=== PATIENT | female | born 1965 | race Caucasian/White ===

== ENCOUNTER 2019-03-13 18:06 | Inpatient (IN) | payer BC ==
[2019-03-13] MEDS ORDERED: ACETAMINOPHEN 500 MG TAB ONE (18:39)
[2019-03-13] MEDS ORDERED: NA CHLORIDE 0.9% 3,000 ML ONE (18:39)
[2019-03-13] MEDS ORDERED: CEFTRIAXONE/SWI 1gm 1 GM/10 ML SYR ONE (18:40)
[2019-03-13 18:55] LABS: Absolute Lymphocytes (CBC) 0.6 K/uL (0.7-4.9); Basophils % 0.4 % (0-1.3); Hematocrit 38.7 % (36.0-45.0); Lymphocytes % 3.9 % (15.3-44.8); MPV 8.1 fL (7.6-11.3); RBC Red Blood Cell Count 4.52 M/uL (3.86-4.86)
--- NOTE | 2019-03-13 19:05 | RAD REPORT ---
EXAM DESCRIPTION: RAD - Chest Single View - 03/13/2019 6:53 pm CLINICAL HISTORY: back pain Chest pain. COMPARISON: No comparisons FINDINGS: Portable technique limits examination quality. Emphysematous changes are present throughout the lungs. Linear atelectasis in the right lung base. So ft tissue fullness is seen in the right hilum. The heart is normal in size. No displaced fractures. IMPRESSION: Mild diffuse COPD with small area of atelectasis in the right lung base. Soft tissue fullness in the right hilar region could represent lymphadenopathy or mass. CT chest foll owup may be of value.
[2019-03-13 19:16] LABS: Protime INR 1.13
[2019-03-13 19:18] LABS: ALT/SGPT 33 U/L (12-78); AST/SGOT 26 U/L (15-37); Albumin 3.4 g/dL (3.4-5.0); Alkaline Phosphatase 111 U/L (45-117); Amylase Level 43 U/L (25-115); BUN Blood Urea Nitrogen 26 mg/dL (7-18); Bicarbonate 23 mmol/L (21-32); Bilirubin Direct 0.2 mg/dL (0-0.2); Bilirubin Total 0.4 mg/dL (0.2-1.0); CKMB Creatine Kinase MB < 1.0 ng/mL (0.3-3.6); Creatine Phosphokinase 133 U/L (26-192); Glucose Level 125 mg/dL (74-106); Lipase 206 U/L (73-393); Potassium 4.5 mmol/L (3.5-5.1); Protein, Total 8.3 g/dL (6.4-8.2); Sodium Level 135 mmol/L (136-145); Troponin (Emerg Dept Use Only) < 0.02 ng/mL (0.0-0.045)
[2019-03-13 19:20] LABS: Urine Amorphous Sediment 2+ /HPF (NONE SEEN); Urine Bacteria <20 /HPF (<20); Urine Culture Reflex Order NOT NEEDED; Urine Mucus 2+ /HPF (NONE SEEN)
[2019-03-13 19:21] LABS: Urine Blood TRACE (NEG); Urine Glucose 2+ (NEG); Urine Protein NEGATIVE (NEG); Urine Specific Gravity 1.015 (1.005-1.030)
--- NOTE | 2019-03-13 19:59 | RAD REPORT ---
EXAM DESCRIPTION: CT - Chest Abd Pelvis Wo Con - 03/13/2019 7:45 pm CLINICAL HISTORY: Chest and abdomen pain. ABD PAIN COMPARISON: Chest Single View dated 03/13/2019 TECHNIQUE: A noncontrast examination was performed. All CT scans are performed using dose optimization technique as appropriate and may include automated exposure control or mA/KV adjustment according to patient size. FINDINGS: A spiculated nodule is present in the right upper lobe measuring 10 x 9 mm. Irregular spic ulated soft tissue mass is suspected in the right hilar region measuring approximately 3.1 x 2.8 cm. Full assessment is quite limited by the lack of IV contrast.Mild postobstructive atelectasis suspecte d in the right lower lobe.No pleural or pericardial effusion.No intrathoracic adenopathy. The liver demonstrates no focal mass or biliary dilatation. Splenomegaly is present. Atrophic left ki dney is seen. Right kidney shows no hydronephrosis or mass. Pancreas and adrenal glands are within no rmal limits. No bowel obstruction, free air, free fluid or abscess. Normal appendix. No pathologic lymphadenopath y in the abdomen or pelvis. No worrisome osseous finding. IMPRESSION: Right hilar mass lesion and spiculated right upper lobe pulmonary nodule are likely rela pati to lung malignancy.Full assessment is limited by lack of IV contrast material. There is mild post obstructive atelectasis in right lower lobe. Splenomegaly. Partially atrophic left kidney may be a sequela of previous infection.
[2019-03-13] MEDS ORDERED: NA CHLORIDE 0.9% 250 ML ONE (20:36)
[2019-03-13] MEDS ORDERED: AZITHROMYCIN 500 MG INJ IVPB ONE (20:36)
[2019-03-13] MEDS ORDERED: TRAMADOL HCL 50 MG TAB ONE (20:39)
--- NOTE | 2019-03-13 21:22 | ER ---
Nurse's Notes [facility] Name: Chelsey Green Age: 53 yrs Sex: Female : 1965 Arrival Date: 03/13/2019 Time: 18:11 Bed 17 Private MD: Diagnosis: Post Obstructive Pneumonia;Hypotension;Fever, unspecified;Hypercalcemia Presentation: 03/13 18:25 Presenting complaint: Patient states: UTI x 1 week. on Bactrim. Fever today. Reports ca1 N/V. Transition of care: patient was not received from another setting of care. Onset of symptoms was March 13, 2019. Risk Assessment: Do you want to hurt yourself or someone else? Patient reports no desire to harm self or others. Initial Sepsis Screen: Does the patient meet any 2 criteria? Temp <36.0*C (96.8*F)) or > 38.3*C (100.9*F). HR > 90 bpm. Yes Does the patient have a suspected source of infection? Yes: Dysuria/Frequency/Urgency/UTI. 18:25 Method Of Arrival: Wheelchair ca1 18:25 Acuity: MARCOS 2 ca1 22:57 Care prior to arrival: None. 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 - Coronavirus screen:: The patient has NOT traveled to [place], [place], or [place] in the past 14 days. The patient has NOT had contact with known/suspected case of Coronavirus?. - Social history:: Smoking status: Patient denies any tobacco usage or history of. - Ebola Screening: : Patient negative for fever greater than or equal to 101.5 degrees Fahrenheit, and additional compatible Ebola Virus Disease symptoms Patient denies exposure to infectious person Patient denies travel to an Ebola-affected area in the 21 days before illness onset No symptoms or risks identified at this time. Screenin:28 Abuse screen: Denies threats or abuse. Denies injuries from another. Nutritional mg2 screening: No deficits noted. Tuberculosis screening: No symptoms or risk factors identified. Fall Risk IV access (20 points). Assessment: 18:32 Reassessment: A code sepsis has been called. sg 18:40 General: Appears in no apparent distress. comfortable, Behavior is calm, cooperative. mg2 Pain: Complains of pain in abdomen. Neuro: Level of Consciousness is awake, alert, obeys commands, Oriented to person, place, time, situation. Cardiovascular: Capillary refill < 3 seconds Patient's skin is warm and dry. Respiratory: Airway is patent Respiratory effort is even, unlabored, Respiratory pattern is regular, symmetrical. GI: Bowel sounds present X 4 quads. Abd is soft and non tender X 4 quads. GI: Reports lower abdominal pain, upper abdominal pain, nausea. : Urine is clear. EENT: No signs and/or symptoms were reported regarding the EENT system. Derm: Skin is intact, is healthy with good turgor, Skin is pink, warm \T\ dry. normal. Musculoskeletal: Circulation, motion, and sensation intact. Capillary refill < 3 seconds. Vital Signs: 18:30 BP 88 / 62; Pulse 133; Resp 18 S; Temp 102.9(O); Pulse Ox 94% on R/A; Weight 99.34 kg ca1 (R); Height 5 ft. 8 in. (172.72 cm) (R); Pain 9/10; 19:28 BP 106 / 56; Pulse 105; Resp 18; Pulse Ox 100% on R/A; mg2 20:30 BP 103 / 57; Pulse 101; Resp 18; Temp 99.7(A); Pulse Ox 95% on R/A; mg2 22:57 BP 96 / 53; Pulse 87; Resp 18; Temp 99.7; Pulse Ox 95% on R/A; mg2 23:09 BP 95 / 58; Pulse 88; Resp 18; Pulse Ox 95% on R/A; mg2 18:30 Body Mass Index 33.30 (99.34 kg, 172.72 cm) ca1 ED Course: 18:11 Patient arrived in ED. mr 18:27 Triage completed. ca1 18:30 Neeraj Espinosa, RN is Primary Nurse. mg2 18:30 Arm band placed on right wrist. ca1 18:32 Enrique Quinonez FNP-C [facility]. la1 18:32 Xavier Figueroa MD is Attending Physician. la1 18:35 Initial lab(s) drawn, by me, sent to lab. First set of blood cultures drawn by me. sg Missed attempt(s): 22 gauge in right forearm. Bleeding controlled, band aid applied, catheter tip intact. 18:54 Radiology exam delayed due to lab results not completed at this time. (BUN/Creatinine). vm2 19:00 Straight cath inserted, using sterile technique, 16 Fr. Returned clear yellow urine. mg2 Patient tolerated well. 19:28 Patient has correct armband on for positive identification. Door closed. mg2 20:30 No provider procedures requiring assistance completed. mg2 21:21 Ronaldo Wu is Hospitalizing Provider. la1 23:24 Patient admitted, IV remains in place. mg2 Administered Medications: 18:49 Drug: NS 0.9% (30 ml/kg) 30 ml/kg Route: IV; Rate: bolus; Site: left forearm; mg2 23:00 Follow up: Response: No adverse reaction; IV Status: Completed infusion mg2 18:49 Drug: Tylenol 1000 mg Route: PO; mg2 22:59 Follow up: Response: No adverse reaction mg2 19:02 Drug: Rocephin 1 grams Route: IV; Rate: calculated rate; Site: left forearm; mg2 22:59 Follow up: Response: No adverse reaction; IV Status: Completed infusion mg2 20:40 Drug: Zithromax 500 mg Route: IVPB; Infused Over: 1 hrs; Site: left forearm; mg2 22:59 Follow up: Response: No adverse reaction; IV Status: Completed infusion mg2 20:40 Drug: traMADol 50 mg Route: PO; mg2 22:59 Follow up: Response: No adverse reaction mg2 Outcome: 21:22 Decision to Hospitalize by Provider. la1 23:25 Admitted to Med/surg accompanied by danelle, via wheelchair, room 211, with chart, Report mg2 called to NORMA Johnson 23:25 Condition: stable 23:25 Instructed on the need for admit, Demonstrated understanding of instructions. 23:29 Patient left the ED. mg2 Signatures: Kt Pollock, NORMA RN sg Alejandra Cai Enrique, NURSE INFORMATICIST-C NURSE INFORMATICIST-Cla1 Daja Thomson 2 Neeraj Espinosa RN RN mg2 Chelsie Leos RN RN ca1
--- NOTE | 2019-03-13 21:23 | EDPHYS ---
[facility] Name: Chelsey Green Age: 53 yrs Sex: Female : 1965 Arrival Date: 03/13/2019 Time: 18:11 Bed 17 Private MD: ED Physician Xavier Figueroa HPI: 03/13 18:37 This 53 yrs old Female presents to ER via Wheelchair with complaints of la1 Fever, Abdominal Pain, Back Pain, Nausea. 18:37 The patient reports fever, that was measured at 102.9 degrees Fahrenheit. Onset: The la1 symptoms/episode began/occurred 3 day(s) ago. Modifying factors: there are no obvious modifying factors. Associated signs and symptoms: Pertinent positives: chills, cough, dysuria . Severity of symptoms: At their worst the symptoms were severe in the emergency department the symptoms are unchanged. The patient has not experienced similar symptoms in the past. pt was being treated for what was either a UTI or kidney stone from her PCP, was on cipro but not getting better, culture report said it was sensitive to bactrim which she is on and on her last two pills, now having increased pain, fevers. . 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 - Coronavirus screen:: The patient has NOT traveled to [place], [place], or [place] in the past 14 days. The patient has NOT had contact with known/suspected case of Coronavirus?. - Social history:: Smoking status: Patient denies any tobacco usage or history of. - Ebola Screening: : Patient negative for fever greater than or equal to 101.5 degrees Fahrenheit, and additional compatible Ebola Virus Disease symptoms Patient denies exposure to infectious person Patient denies travel to an Ebola-affected area in the 21 days before illness onset No symptoms or risks identified at this time. ROS: 18:39 Eyes: Negative for injury, pain, redness, and discharge, ENT: Negative for injury, la1 pain, and discharge, Neck: Negative for injury, pain, and swelling, Cardiovascular: Negative for chest pain, palpitations, and edema, Respiratory: + for cough Abdomen/GI: Negative for abdominal pain, nausea, vomiting, diarrhea, and constipation, Back: Negative for injury and pain. 18:39 MS/Extremity: Negative for injury and deformity, Neuro: Negative for headache, weakness, numbness, tingling, and seizure, Endocrine: Negative for neck swelling, polydipsia, polyuria, polyphagia, and marked weight changes. 18:39 Constitutional: Positive for body aches, chills, fever. 18:39 Eyes: 18:39 : Positive for urinary symptoms, burning with urination. Exam: 18:42 Constitutional: This is a well developed, well nourished patient who is awake, alert, la1 and in no acute distress. Head/Face: Normocephalic, atraumatic. Eyes: Pupils equal round and reactive to light, extra-ocular motions intact. Lids and lashes normal. Conjunctiva and sclera are non-icteric and not injected. Cornea within normal limits. Periorbital areas with no swelling, redness, or edema. ENT: Mucous membranes moist. Neck: Trachea midline Supple, full range of motion without nuchal rigidity, or vertebral point tenderness. No Meningismus. Chest/axilla: Normal chest wall appearance and motion. Cardiovascular: Regular rate and rhythm with a normal S1 and S2. Respiratory: Lungs have equal breath sounds bilaterally, clear to auscultation Abdomen/GI: Soft, non-tender 18:42 Skin: Warm, dry with normal turgor. Normal color with no rashes, no lesions, and no evidence of cellulitis. MS/ Extremity: Pulses equal, no cyanosis. Neurovascular intact. Full, normal range of motion. 18:42 Back: CVA tenderness, that is moderate. Vital Signs: 18:30 BP 88 / 62; Pulse 133; Resp 18 S; Temp 102.9(O); Pulse Ox 94% on R/A; Weight 99.34 kg ca1 (R); Height 5 ft. 8 in. (172.72 cm) (R); Pain 9/10; 19:28 BP 106 / 56; Pulse 105; Resp 18; Pulse Ox 100% on R/A; mg2 20:30 BP 103 / 57; Pulse 101; Resp 18; Temp 99.7(A); Pulse Ox 95% on R/A; mg2 22:57 BP 96 / 53; Pulse 87; Resp 18; Temp 99.7; Pulse Ox 95% on R/A; mg2 23:09 BP 95 / 58; Pulse 88; Resp 18; Pulse Ox 95% on R/A; mg2 18:30 Body Mass Index 33.30 (99.34 kg, 172.72 cm) ca1 MDM: 18:37 Patient medically screened. la1 21:19 Data reviewed: vital signs, nurses notes, lab test result(s), EKG, radiologic studies, la1 I have discussed the patient's presentation/case with the attending Emergency Department Physician; and as a result, I will admit patient. Data interpreted: Pulse oximetry: on room air is 95 %. Interpretation: normal. Counseling: I had a detailed discussion with the patient and/or guardian regarding: the historical points, exam findings, and any diagnostic results supporting the discharge/admit diagnosis, lab results, radiology results, the need for further work-up and treatment in the hospital. Medication response: NS. Response to treatment: the patient's symptoms have markedly improved after treatment. Physician consultation: Ronaldo Merlinjacquelyn was called at 21:20, was contacted at 21:20, regarding admission, to the telemetry unit. 02 18:32 Order name: Amylase, Serum mg2 02 18:32 Order name: Basic Metabolic Panel mg2 02/ 18:32 Order name: Blood Culture Adult (2) mg2 03/13 18:32 Order name: CBC with Diff mg2 03/13 18:32 Order name: Ckmb mg2 / 18:32 Order name: CPK mg2 / 18:32 Order name: Lactate; Complete Time: 20:03 mg2 / 18:32 Order name: LFT's mg2 / 18:32 Order name: Lipase mg2 02/ 18:32 Order name: Procalcitonin mg2 02/ 18:32 Order name: Protime (+inr) mg2 / 18:32 Order name: Ptt, Activated mg2 / 18:32 Order name: Troponin (emerg Dept Use Only) mg2 03/13 18:32 Order name: Urine Microscopic Only mg2 03/13 18:52 Order name: Glucose, Ancillary Testing; Complete Time: 19:07 EDMS 03/13 19:11 Order name: CBC with Automated Diff; Complete Time: 19:11 EDMS 03/13 19:11 Order name: Urine Dipstick--Ancillary (enter results) mw2 03/13 19:11 Order name: Urine --Ancillary (enter results) 2 03/13 19:18 Order name: Protime (+INR); Complete Time: 20:03 EDMS 03/13 19:18 Order name: PTT, Activated Partial Thromb; Complete Time: 20:03 EDMS 03/13 19:22 Order name: Urine Microscopic Only; Complete Time: 20:03 EDMS 03/13 19:22 Order name: Urine --Ancillary; Complete Time: 20:03 EDMS 03/13 19:22 Order name: Urine Dipstick-Ancillary; Complete Time: 20:03 EDMS 03/13 19:27 Order name: Basic Metabolic Panel; Complete Time: 20:03 EDMS 03/13 19:27 Order name: Liver (Hepatic) Function; Complete Time: 20:03 EDMS 03/13 19:28 Order name: Creatine Phosphokinase; Complete Time: 20:03 EDMS 03/13 19:28 Order name: CKMB Creatine Kinase MB; Complete Time: 20:03 EDMS 03/13 19:28 Order name: Troponin (Emerg Dept Use Only); Complete Time: 20:03 EDMS 03/13 19:28 Order name: Amylase Level; Complete Time: 20:03 EDMS 03/13 19:28 Order name: Lipase; Complete Time: 20:03 EDMS 03/13 18:32 Order name: Chest Single View XRAY mg2 03/13 18:32 Order name: Accucheck; Complete Time: 18:50 mg2 03/13 18:32 Order name: Cardiac monitoring; Complete Time: 18:50 mg2 03/13 18:32 Order name: EKG - Nurse/Tech; Complete Time: 19:28 mg2 03/13 18:32 Order name: IV Saline Lock - Large Bore; Complete Time: 18:50 mg2 03/13 18:32 Order name: Labs collected and sent; Complete Time: 18:50 mg2 03/13 18:32 Order name: O2 Per Protocol; Complete Time: 18:50 mg2 03/13 18:32 Order name: O2 Sat Monitoring; Complete Time: 18:50 mg2 03/13 18:32 Order name: Urine Dipstick-Ancillary (obtain specimen); Complete Time: 19:13 mg2 03/13 18:37 Order name: Cath: straight cath urine please; Complete Time: 19:13 la1 03/13 18:50 Order name: CT Abd/Pelvis - IV Contrast Only la1 03/13 19:13 Order name: RAD; Complete Time: 20:03 EDTX 03/13 19:32 Order name: Procalcitonin; Complete Time: 20:03 EDMS 03/13 20:14 Order name: CT; Complete Time: 21:14 EDTX 03/13 20:17 Order name: Flu; Complete Time: 21:14 mg2 Administered Medications: 18:49 Drug: NS 0.9% (30 ml/kg) 30 ml/kg Route: IV; Rate: bolus; Site: left forearm; mg2 23:00 Follow up: Response: No adverse reaction; IV Status: Completed infusion mg2 18:49 Drug: Tylenol 1000 mg Route: PO; mg2 22:59 Follow up: Response: No adverse reaction mg2 19:02 Drug: Rocephin 1 grams Route: IV; Rate: calculated rate; Site: left forearm; mg2 22:59 Follow up: Response: No adverse reaction; IV Status: Completed infusion mg2 20:40 Drug: Zithromax 500 mg Route: IVPB; Infused Over: 1 hrs; Site: left forearm; mg2 22:59 Follow up: Response: No adverse reaction; IV Status: Completed infusion mg2 20:40 Drug: traMADol 50 mg Route: PO; mg2 22:59 Follow up: Response: No adverse reaction mg2 Disposition: 03/14 07:40 Co-signature as Attending Physician, Xavier Figueroa MD. rn Disposition: 03/13/19 21:22 Hospitalization ordered by Ronaldo Wu for Inpatient Admission. Preliminary diagnosis are Post Obstructive Pneumonia, Hypotension, Fever, unspecified, Hypercalcemia. - Bed requested for Telemetry/MedSurg (Inpatient). - Status is Inpatient Admission. mg2 - Condition is Stable. - Problem is new. - Symptoms have improved. Signatures: Dispatcher [employer] EDXavier Agrawal MD MD rn Attema, Lee, REMY-C CHIP TUNER-Cla1 Carina Choi RN RN tl1 Neeraj Espinosa RN RN mg2 Chelsie Leos RN RN ca1 Corrections: (The following items were deleted from the chart) 03/13 22:46 21:22 Hospitalization Ordered by Ronaldo Wu for Inpatient Admission. Preliminary tl1 diagnosis is Post Obstructive Pneumonia; Hypotension; Fever, unspecified; Hypercalcemia. Bed requested for Telemetry/MedSurg (Inpatient). Status is Inpatient Admission. Condition is Stable. Problem is new. Symptoms have improved. la1 23:29 22:46 03/13/2019 21:22 Hospitalization Ordered by Ronaldo Wu for Inpatient mg2 Admission. Preliminary diagnosis is Post Obstructive Pneumonia; Hypotension; Fever, unspecified; Hypercalcemia. Bed requested for Telemetry/MedSurg (Inpatient). Status is Inpatient Admission. Condition is Stable. Problem is new. Symptoms have improved. tl1
--- NOTE | 2019-03-13 22:32 | P.HP ---
Certification for Inpatient Patient admitted to: Inpatient With expected LOS: >2 Midnights Practitioner: I am a practitioner with admitting privileges, knowledge of patient current condition, hospital course, and medical plan of care. Services: Services provided to patient in accordance with Admission requirements found in Title 42 Section 412.3 of the Code of Federal Regulations Patient History Date of Service: 03/13/19 Reason for admission: Fever and chills History of Present Illness: 53 year old woman with a history kidney stones, diabetes mellitus and neuropathy presented to the emergency department with a complaint of fever and chills of 1 day duration. She was recently treated for UTI and has 2 more doses of Bactrim to complete treatment. The organism was found to be resistant to Cipro which she took before the Bactrim. She reports an episode of vomiting. She denied diarrhea. She endorsed rigors. Her UA in the ED did not suggest the presence of UTI. Chest x-ray demonstrated spiculated spots in the right upper lobe and right hilar regions highly suspicious for malignancy. It also reported atelectasis in the right lower. Her serum calcium is elevated. She has leukocytosis. Fever up to 102.9 was recorded in the ED. Patient meets criteria for sepsis. She is admitted for further management. Allergies estrogens, conjugated [From Premarin] Allergy (Verified 03/13/19 23:22) Hives Home Medications: Butalb/Acetaminophen/Caffeine [Jcsqym-Rmfywmqq-Fnzt 50-300-40] 1 cap PO Q6HP PRN 03/14/19 Cholecalciferol (Vitamin D3) [Vitamin D3] 2,000 unit PO DAILY 03/14/19 Dapagliflozin Propanediol [Farxiga] 10 mg PO DAILY 03/14/19 Dulaglutide [Trulicity] 1.5 mg SQ EVERY 7TH DAY 03/14/19 Duloxetine HCl 60 mg PO BEDTIME 03/14/19 Levothyroxine Sodium 150 mcg PO DAILY 03/14/19 Metaxalone [Skelaxin*] 800 mg PO TIDP PRN 03/14/19 Omeprazole [Prilosec] 40 mg PO DAILY 03/14/19 Pioglitazone HCl 45 mg PO DAILY 03/14/19 Pitavastatin Calcium [Livalo] 4 mg PO DAILY 03/14/19 Promethazine HCl 25 mg PO Q4HP PRN 02/06/20 Ubidecarenone [Co Q-10] 200 mg PO DAILY 03/14/19 - Past Medical/Surgical History Diabetic: Yes -: DM type 2 -: Peripheral neuropathy -: Kidney stones -: Lithotripsy -: sp Ureteral stent with removal -: Orthopedic surgery - Family History Father -: Cancer (Lung and brain) - Social History Smoking Status: Former smoker (Quit 5 years ago) Alcohol use: No CD- Drugs: No Place of Residence: Home Review of Systems Other: General:No unintentional weight loss. Eyes: No eye discharge, Respiratory: Report dry cough. CVS: No palpitation, no lightheadedness. GI: No abdominal pain, no constipation, no diarrhea. Genitourinary: No dysuria, no urinary frequency, no incontinence, no hematuria. Reports right flank pain. Musculoskeletal: No joint pains, or joint swelling, no gait instability. Neurology: No headache, no asymmetric weakness, no problem with swallowing. Except as documented, all other systems reviewed and negative. Physical Examination - Physical Exam General: Alert, In no apparent distress, Oriented x3 HEENT: Mucous membr. moist/pink, Sclerae nonicteric Neck: Supple, JVD not distended Respiratory: Clear to auscultation bilaterally, Normal air movement Cardiovascular: No edema, Normal pulses, Regular rate/rhythm, Normal S1 S2, Other (Tachycardic) Capillary refill: <2 Seconds Gastrointestinal: Normal bowel sounds, Soft and benign, Non-distended, No tenderness Musculoskeletal: No swelling, No erythema Integumentary: No rashes, No erythema Neurological: Normal speech, Normal strength at 5/5 x4 extr - Studies Laboratory Data (last 24 hrs) 03/13/19 18:44: PT 13.3 H, INR 1.13, APTT 33.1 03/13/19 18:44: WBC 14.9 H, Hgb 12.9, Hct 38.7, Plt Count 255 03/13/19 18:44: Sodium 135 L, Potassium 4.5, BUN 26 H, Creatinine 2.23 H, Glucose 125 H, Total Bilirubin 0.4, AST 26, ALT 33, Alkaline Phosphatase 111, Amylase 43, Lipase 206 Microbiology Data (last 24 hrs): 03/13/19 20:25 Nasopharnyx Influenza Type A Antigen Screen - Final 03/13/19 20:25 Nasopharnyx Influenza Type B Antigen Screen - Final Assessment and Plan - Problems (Diagnosis) (1) Sepsis Current Visit: Yes Status: Acute (2) Pneumonia Current Visit: Yes Status: Acute (3) Lung mass Current Visit: Yes Status: Acute (4) Hypercalcemia Current Visit: Yes Status: Acute (5) Acute renal failure Current Visit: Yes Status: Acute (6) DM type 2 (diabetes mellitus, type 2) Current Visit: Yes Status: Acute - Plan Admit to general medical floor Start IV Rocephin and Zithromax IV hydration Follow blood culture. Obtain urine culture to document resolution of UTI Pain management as needed Insulin sliding scale for glucose management Consult to pulmonary. - Advance Directives Does patient have a Living Will: No Does patient have a Durable POA for Healthcare: No
[2019-03-13] MEDS ORDERED: ALBUTEROL 2.5 MG/3 ML NEB SOL NEB PRN (23:33)
[2019-03-13] MEDS ORDERED: ONDANSETRON 4 MG/2 ML VIAL IV PRN (23:33)
[2019-03-13] MEDS ORDERED: ACETAMINOPHEN 500 MG TAB PO PRN (23:33)
[2019-03-14 00:03] VITALS: BMI 33.3
[2019-03-14] MEDS: NA CHLORIDE 0.9% 1,000 ML IV SCH ×2 (01:02→11:07)
[2019-03-14] MEDS: HEPARIN 5000 UNIT/ML 1 ML VIAL SQ SCH ×3 (01:02→17:00)
[2019-03-14] MEDS: MORPHINE 2 MG/ML SYR IV PRN ×3 (02:52→17:39)
[2019-03-14 05:44] LABS: Absolute Lymphocytes (CBC) 1.1 K/uL (0.7-4.9); Basophils % 0.8 % (0-1.3); Hematocrit 33.3 % (36.0-45.0); Lymphocytes % 15.5 % (15.3-44.8); MPV 7.8 fL (7.6-11.3); RBC Red Blood Cell Count 3.81 M/uL (3.86-4.86)
[2019-03-14 06:00] LABS: Magnesium 1.9 mg/dL (1.8-2.4); Phosphorus 3.2 mg/dL (2.5-4.9); Potassium 4.1 mmol/L (3.5-5.1)
[2019-03-14] MEDS: INSULIN -REGULAR HUMAN 50 UNIT/0.5 ML ML SQ SCH ×4 (07:30→21:00)
[2019-03-14] MEDS ORDERED: CEFTRIAXONE 1 GM/NS 50 ML 1 GM/50 ML BAG IV SCH (09:00)
[2019-03-14] MEDS ORDERED: METAXALONE 800 MG TAB PO PRN (09:06)
--- NOTE | 2019-03-14 10:24 | EKG ---
Test Date: 2019-03-13 Test Time: 19:17:36 Adventure Therapist: MG MEASUREMENT RESULTS: Intervals: Rate: 108 WA: 150 QRSD: 92 QT: 342 QTc: 458 [place]: P: 45 WA: 150 QRS: -13 T: 21 INTERPRETIVE STATEMENTS: Sinus tachycardia Possible Anterolateral infarct, age undetermined Abnormal ECG No previous ECG available for comparison Electronically Signed On 03-14-19 10:24:08 SOIL BIOLOGY TEACHER by Spencer Lindquist
[2019-03-14] MEDS ORDERED: NA CHLORIDE 0.9% 1,000 ML IV SCH (12:30)
--- NOTE | 2019-03-14 12:36 | P.CNS ---
Date of Consult: 03/14/19 Reason for Consult: Possible lung cancer Chief Complaint: Fever and chills History of Present Illness: Patient is 53 years of age admitted with sudden onset of fever and chills admitted from the emergency room abnormal chest x-ray was found to have a right hilar mass former smoker quit 5 years ago did smoke much 1 pack a week but was exposed to significant amount of secondhand smoke no prior history of obstructive airways disease no other pulmonary complaints denies any shortness of breath a slight cough about 3 weeks ago was also informed that her calcium was elevated Allergies estrogens, conjugated [From Premarin] Allergy (Verified 03/13/19 23:22) Hives Home Medications: Butalb/Acetaminophen/Caffeine [Nsybal-Rywhynph-Sqwh 50-300-40] 1 cap PO Q6HP PRN 03/14/19 Cholecalciferol (Vitamin D3) [Vitamin D3] 2,000 unit PO DAILY 03/14/19 Dapagliflozin Propanediol [Farxiga] 10 mg PO DAILY 03/14/19 Dulaglutide [Trulicity] 1.5 mg SQ EVERY 7TH DAY 03/14/19 Duloxetine HCl 60 mg PO BEDTIME 03/14/19 Levothyroxine Sodium 150 mcg PO DAILY 03/14/19 Metaxalone [Skelaxin*] 800 mg PO TIDP PRN 03/14/19 Omeprazole [Prilosec] 40 mg PO DAILY 03/14/19 Pioglitazone HCl 45 mg PO DAILY 03/14/19 Pitavastatin Calcium [Livalo] 4 mg PO DAILY 03/14/19 Promethazine HCl 25 mg PO Q4HP PRN 03/14/19 Ubidecarenone [Co Q-10] 200 mg PO DAILY 03/14/19 - Past Medical/Surgical History Diabetic: Yes -: DM type 2 -: Peripheral neuropathy -: Kidney stones -: Lithotripsy -: sp Ureteral stent with removal -: Orthopedic surgery - Family History Father Medical History: Cancer - Social History Alcohol use: No CD- Drugs: No Place of Residence: Home Review of Systems 10-point ROS is otherwise unremarkable Physical Examination Temp Pulse Resp BP Pulse Ox 96.9 F 81 20 122/60 93 03/14/19 04:00 03/14/19 04:00 03/14/19 11:41 03/14/19 04:00 03/14/19 11:41 General: Alert, Oriented x3 HEENT: Atraumatic Neck: Supple Respiratory: Clear to auscultation bilaterally Cardiovascular: No edema, Regular rate/rhythm Gastrointestinal: Normal bowel sounds, Soft and benign Musculoskeletal: No clubbing, No swelling Integumentary: No rashes Neurological: Normal gait, Normal speech Laboratory Data (last 24 hrs) 03/13/19 18:44: PT 13.3 H, INR 1.13, APTT 33.1 03/13/19 18:44: WBC 14.9 H, Hgb 12.9, Hct 38.7, Plt Count 255 03/13/19 18:44: Sodium 135 L, Potassium 4.5, BUN 26 H, Creatinine 2.23 H, Glucose 125 H, Total Bilirubin 0.4, AST 26, ALT 33, Alkaline Phosphatase 111, Amylase 43, Lipase 206 - Problems (1) Lung mass Current Visit: Yes Status: Acute Plan: Patient is 53 years of age admitted with fever possible infection she has a right hilar mass and a right apical nodule with hypercalcemia most likely this is squamous cell cancer. I have discussed with the patient and will arrange for her to have an outpatient bronchoscopy the risks of bronchoscopy you explained which include bleeding infection and lung collapse also she will need a full pulmonary function test PET scan an MRI patient's white count was elevated may have had a pneumonia I agree with waiting for blood cultures and discharged on an antibiotic
[2019-03-14] MEDS ORDERED: FUROSEMIDE 40 MG/4 ML VIAL IV ONE (13:30)
--- NOTE | 2019-03-14 13:45 | RAD REPORT ---
EXAM DESCRIPTION: US - Renal Ultrasound-Complete - 03/14/2019 1:35 pm CLINICAL HISTORY: Acute renal insufficiency COMPARISON: None. FINDINGS: The right kidney measures 12 cm with an increased echotexture. The left kidney measures 9 cm with an increased echotexture. Mild cortical thinning Hydronephrosis is not seen. No gross abnormality of bladder is seen IMPRESSION: Mildly increased renal echotexture consistent with parenchymal disease Left kidney is mildly diminished in size with mild cortical thinning perhaps secondary prior inflamma tion
[2019-03-14 14:07] LABS: UR CREAT < 13.0 mg/dL (20-320); UR PROTEIN < 5 mg/dL (<11.9); Urine Protein/Creatinine Ratio ND ratio (<0.15)
--- NOTE | 2019-03-14 15:39 | PN ---
Date of Progress Note: 03/14/2019 Subjective: Patient seen and examined. Chart reviewed and case discussed with RN and Dr. Patricia. Patient states she is doing slightly better than last time, however, still complains of pain in her abdomen, back, and chest. Reports some shortness of breath with minimal exertion. at the be dside. Treatment plan explained, all questions answered. CT scan results and lung mass discussed wi th the patient. Medications: List reviewed. Physical Examination: Vital Signs: Temperature 96.9, heart rate 81, blood pressure 122/60, respirations 20, O2 93% on room air. General: Awake, alert, oriented x3. Slightly ill-appearing, obese female, BMI 33, in some mild resp iratory distress. CV: S1, S2. Regular rate and rhythm. Peripheral pulses present. Respiratory: Diminished breath sounds. Rhonchi heard. No wheezing. No stridor. Gastrointestinal: Abdomen is soft. Minimal tenderness to palpation in the left lower quadrant. No rebound, guarding, or rigidity. Positive bowel sounds. Extremities: No clubbing, cyanosis, or edema. Neurologic: Cranial nerves 2 through 12 intact grossly. No focal neurological deficits. Speech is normal. Laboratory Data: Sodium 141, potassium 4.1, chloride 110, CO2 of 25, BUN 23, creatinine 1.77, glucos e 77, calcium 10.6. Phosphorus 3.2, magnesium 1.9. WBC 7.4, hemoglobin and hematocrit 11.1 and 33.3 , platelets 182, neutrophils 69%. Blood cultures are pending. Influenza screen is negative. Assessment: 1.Sepsis, improving. White blood cell counts normalized secondary to pneumonia. We will continue w ith IV antibiotics and IV fluids. Follow up on culture results. 2.Pneumonia, likely postobstructive right lung. 3.Lung mass in the right hilum and spiculated right upper lobe nodule, likely related to lung malign chel. Patient does have history of smoking. Pulmonology has been consulted. We will likely need br onchoscopy and further diagnosis and treatment. 4.Hypercalcemia, likely due to above and improved with IV fluids. We will continue to monitor. 5.Acute kidney injury, unknown baseline. Patient has no history of chronic kidney disease. We will consult Nephrology, improving. We will continue to monitor. Avoid NSAIDs. 6.Diabetes mellitus type 2, non-insulin requiring. We will continue with sliding scale insulin and monitor blood glucose levels. Plan: Pulmonology eval. Further workup for lung mass. Follow up on culture results. /TAYO Voice ID: [id number] Report ID: [id number]
--- NOTE | 2019-03-14 16:18 | CON ---
Date of Consultation: 03/14/2019 Reason For Consultation: Elevated BUN and creatinine, atrophied left kidney, nephrolithiasis. History Of Present Illness: This is a pleasant 53-year-old female with significant past medical history of nephrolithiasis, status post septic shock and lithotripsy back in 2014, status post left renal stent, diabetes since 2005 complicated with no neuropathy, no nephropathy, the patient was in her regular state of health. According to her, last week around Monday, started having hematuria, done lab, found to have hematuria and UTI, was started by her PCP on Cipro. Then, the culture came different sensitivity, so she was switched to Bactrim and , patient still feeling weak with fever. For that reason, she reported to the hospital. Primary workup in the hospital found elevation in BUN and creatinine, hypercalcemia. Workup showed possible mass in the lung and hypercalcemia. Patient was admitted. Upon arrival to the hospital, kidney function, creatinine was 2.2 with GFR of 23. Patient was started on hydration. Creatinine down to 1.7, GFR of 30. Patient not aware about any kidney problem before. The patient not aware also about atrophied left kidney. Patient denied taking any nonsteroidal, no IV contrast even with the CT that was done in the emergency room. Past Medical History: Includes: 1. Kidney stone back in 2014 complicated with urosepsis, septic shock, status post stent placement and removal, status post lithotripsy by Dr. Colon in [facility]. 2. Diabetes since 2005, no neuropathy, no nephropathy. 3. UTI. Allergies: TO ESTROGEN AND CONJUGATE. Past Surgical History: Includes renal stent on the left side, orthopedic surgery. Family History: Positive for cancer. Social History: Ex-smoker. Denied alcohol. Denied drugs abuse. Review of Systems: Head and Neck: No red eye. No ear pain. GI: Has nausea. No vomiting. : Has abdominal pain, has dysuria, has hematuria. [employer] Equipment [employer]: No vaginal discharge. Respiratory: Has cough. Cardiovascular: No chest pain. Endocrine: No polydipsia. Skin: No rash. Neuro: No neuropathy. Has low back pain. Musculoskeletal: Low back pain. Physical Examination: Vital Signs: When I saw the patient, blood pressure 122/60, pulse of 81, afebrile. Reviewing the record, the patient upon admission blood pressure down to 88/60. Chest: Clear to auscultation. Heart: S1, S2. Regular. Abdomen: Soft, mild tenderness on the left side. Extremities: No edema. Neuro: Alert, oriented x3. No focal. Laboratory Data: Sodium 141, potassium 4.1, bicarb 25, BUN 23, creatinine 1.7, calcium 10.6, magnesium 1.9, phosphorus 3.2. Upon admission, calcium 12.4, creatinine 2.2. Albumin is 3.4, corrected calcium around 12.8. WBC 7.4, H and H 11.1/33.3, platelets 183. CT showing lung mass and atrophied left kidney. No hydronephrosis. Current Medications: In the hospital include: 1. Ceftriaxone. 2. Azithromycin. 3. Normal saline 100 per hour. 4. Atorvastatin. 5. Zofran. 6. Pantoprazole. 7. Levothyroxine. Assessment And Plan: 1. Acute kidney injury secondary to prerenal, secondary to dehydration, secondary to gastrointestinal loss, superimposed with calcium diuresis secondary to hypercalcemia. Patient looked to me still on the dry side. I am going to bolus the patient with another liter of normal saline. Continue intravenous fluid. 2. Hypercalcemia. Apparently patient taking vitamin D with the presence of lung mass, paraneoplastic need to be ruled out. I am going to go ahead and send for PTH, vitamin D25-OH, and vitamin D125-OH to rule out toxicity of vitamin D intake/paraneoplastic secondary to the lung cancer. As I mentioned, the patient is going to be bolused with another liter of normal 7 and we will continue hydration. We will give Lasix of 40 mg after the bolus. 3. Hypertension. Currently with the presence of acute kidney injury, low blood pressure, hold all blood pressure medication. 4. Anemia with the presence of hypercalcemia and acute kidney disease. Light chain disease needs to be ruled out. 5. I am going to go ahead and send for protein electrophoresis. 6. We will send anemia workup also. 7. Diabetes as by Primary. 8. History of nephrolithiasis with the presence of the atrophied kidney. We will request the record to evaluate the recurrence of kidney stone, could be that is the reason of atrophy or to evaluate if this is something chronic happened and we will follow up. 9. Pneumonia. urinary tract infection has been ruled out. Continue current antibiotic for the pneumonia. Follow up with the Primary. 10. Lung mass as by Primary. Thank you, Dr. Hawkins, for allowing us to participate in the care of your patient. Case discussed with Dr. Hawkins, agreed on the plan. Discussed with the patient. Verbalized understanding. NACHO Voice ID: [id number] Report ID: [id number]
[2019-03-14] MEDS ORDERED: CEFTRIAXONE/SWI 1gm 1 GM/10 ML SYR IV SCH (18:00)
[2019-03-14] MEDS ORDERED: AZITHROMYCIN IV 500 MG in NA CHLORIDE 0.9% 250 ML IVPB SCH (20:00)
[2019-03-14] MEDS ORDERED: ZOLPIDEM TARTRATE 5 MG TABLET PO PRN (20:36)
[2019-03-14] MEDS ORDERED: DULOXETINE 30 MG CAP PO SCH (21:00)
[2019-03-14] MEDS ORDERED: ATORVASTATIN 20 MG TAB PO SCH (21:00)
[2019-03-15] MEDS: MORPHINE 2 MG/ML SYR IV PRN ×2 (00:39→08:34)
[2019-03-15] MEDS: HEPARIN 5000 UNIT/ML 1 ML VIAL SQ SCH ×2 (00:40→08:35)
[2019-03-15 05:08] VITALS: O2SAT 96
[2019-03-15] MEDS ORDERED: LEVOTHYROXINE SOD 0.075 MG TAB PO SCH (06:30)
[2019-03-15 06:32] LABS: Absolute Lymphocytes (CBC) 0.8 K/uL (0.7-4.9); Basophils % 2.3 % (0-1.3); Hematocrit 32.7 % (36.0-45.0); MPV 8.2 fL (7.6-11.3); RBC Red Blood Cell Count 3.75 M/uL (3.86-4.86)
[2019-03-15] MEDS: INSULIN -REGULAR HUMAN 50 UNIT/0.5 ML ML SQ SCH (07:30)
[2019-03-15 08:29] LABS: Albumin 2.9 g/dL (3.4-5.0); Ferritin 77.8 ng/mL (8-388); Folic Acid, (Folate) 19.8 ng/mL (3.1-17.5); Phosphorus 3.1 mg/dL (2.5-4.9); Potassium 3.8 mmol/L (3.5-5.1); Thyroid Stimulating Hormone 0.596 uIU/mL (0.360-3.740); Uric Acid 5.6 mg/dL (2.6-6.0)
[2019-03-15] MEDS ORDERED: PANTOPRAZOLE 40MG TABLET PO SCH (09:00)
[2019-03-15] MEDS ORDERED: PIOGLITAZONE 15 MG TAB PO SCH (09:00)
[2019-03-15] MEDS ORDERED: HOME MED 1 EA UNK (Dapagliflozin Propanediol [Farxiga] 10 MG) PO SCH (09:00)
[2019-03-15 09:45] LABS: Arterial Blood Carboxyhemoglob 1.2 % (0-1.5); Blood Gas Oxyhemoglobin 94.7 % (94-97); Blood O2 Saturation 96.8 % (92-98.5)
[2019-03-15 10:13] VITALS: BP 136/71; TEMP 97.4
[2019-03-15 10:43] LABS: Rheumatoid Factor NEG (NEG)
--- NOTE | 2019-03-16 05:08 | DS ---
Date of Discharge: 03/15/2019 Consultants: 1.Dr. Patricia with Pulmonology. 2.Dr. Worthy with Nephrology. Admitting Diagnoses: 1.Sepsis. 2.Pneumonia. 3.Lung mass. 4.Hypercalcemia. 5.Acute kidney injury. 6.Diabetes mellitus type 2. Discharge Diagnoses: 1.Sepsis, resolved. Cultures negative to date. Blood cultures negative to date. Blood cultures po sitive for gram-negative rods. Final sensitivity pending. 2.Pneumonia, right lung, likely postobstructive. 3.Lung mass in the right hilum and spiculated right upper lobe nodule, likely lung malignancy. Outp atient bronchoscopy. 4.Hypercalcemia, improved with IV fluids, likely paraneoplastic versus vitamin D toxicity. 5.Acute kidney injury. Patient does have some history of chronic kidney disease related to injury f rom kidney stone, significantly improved. 6.Diabetes mellitus type 2, non-insulin requiring. 7.Obesity, BMI 33. 8.Acute cystitis. Hospital Course: Patient is a 53-year-old female with history of kidney stones, diabetes, neuropathy , comes in with fever, chills, found to be septic. The patient failed outpatient treatment with Bact rim and Cipro for her UTI, came in with fever, chills, was found to have pneumonia on the right side as well as lung mass. CT scan was also done, which showed nodule and right hilar mass, which was lik noni related to malignancy. She is also hypercalcemic, which may be related to paraneoplastic syndrom e versus vitamin D toxicity. Patient was seen by Dr. Worthy and Dr. Patricia. Patient will be june eduled for outpatient bronchoscopy. Her sepsis improved. Her white blood cell count normalized. He r creatinine improved significantly from 2.2 to 1.5. She does seem to have some baseline kidney dysf unction after injury from kidney stone as seen on the renal ultrasound of the left kidney. Patient w as then cleared for discharge. She understands that it is very important for her to follow up with P ulmonology for diagnostic bronchoscopy to further evaluate this mass, which is most likely malignant. Medications: As per medication reconciliation list. Followup: Follow up with primary care physician in 2-3 days. Follow up with crisis intervention counselor, Dr. Simran davison in a week. Follow up with psychologist counseling, Dr. Worthy, in 2 weeks. Return to ER for worsening c ondition. Diet: Diabetic. Activity: As tolerated. Physical Examination: General: Awake, alert, and oriented x3 in no acute distress, obese female. CV: S1, S2. No murmurs. Respiratory: Moving air well bilaterally. Abdomen: Abdomen is soft, nontender, nondistended. Positive bowel sounds. Extremities: No clubbing, cyanosis, or edema. Neurologic: Nonfocal. Total time discharging patient was 33 minutes. /TAYO Voice ID: [id number] Report ID: [id number]
[2019-03-19 03:36] LABS: HBsAG Nonreactive (Nonreactive)
[2019-03-19 16:02] LABS: Hepatitis C Virus RNA (PCR)log <1.18 log IU/mL
[2019-03-19 22:57] LABS: Albumin, (SPE) 3.1 g/dL (3.8-4.8); Alpha-1-Globulins 0.4 g/dL (0.2-0.3); Alpha-2-Globulins 0.7 g/dL (0.5-0.9); Gamma Globulins 1.3 g/dL (0.8-1.7); INTERPRETATION REPORT
[2019-03-22 10:02] LABS: Vitamin D 1,25-Dihydroxy Total 123 pg/mL (18-72); Vitamin D,1,25-OH2, D2 <8 pg/mL
== END 2019-03-15 10:21 | disposition home or self-care (01) | DRG 871 ==
LOC: ER 18:06 → ERHOLD 22:46 → 2ND 23:23
PROVIDERS: ADMIT Internal Medicine; ATTEND Internal Medicine
DX: A41.9 Sepsis, unspecified organism (principal); J18.9 Pneumonia, unspecified organism; N17.9 Acute kidney failure, unspecified; N30.00 Acute cystitis without hematuria; C34.90 Malignant neoplasm of unspecified part of unspecified bronchus or lung; E83.52 Hypercalcemia; E11.9 Type 2 diabetes mellitus without complications; E66.9 Obesity, unspecified; Z68.33 Body mass index [BMI] 33.0-33.9, adult
CPT/HCPCS: 36415; 51702; 71045; 71250; 74176; 76770; 80048; 80069; 80076; 81003; 81015; 81025; 82150; 82306; 82550; 82553; 82570; 82607; 82652; 82728; 82746; 82805; 82947; 83520; 83540; 83605; 83690; 83735; 83970; 84100; 84145; 84156; 84165; 84443; 84466; 84484; 84550; 85025; 85044; 85610; 85730; 86021; 86160; 86225; 86430; 86704; 86706; 87040; 87077; 87086; 87088; 87186; 87340; 87522; 87804; 93005; 94760; 96365; 96366; 96367; 99285; J0456; J0696; J1644; J1940; J2270; J7030

== ENCOUNTER 2019-03-22 06:52 | Day surgery (SDC) | payer BC ==
[2019-03-22] MEDS ORDERED: GLYCOPYRROLATE 0.2 MG/ML SYR ONE (07:28)
[2019-03-22] MEDS ORDERED: NA CHLORIDE 0.9% 1,000 ML ONE (07:29)
[2019-03-22] MEDS ORDERED: Phenylephrine HCl 10 MG/ML 1 ML VIAL ONE (07:30)
[2019-03-22] MEDS ORDERED: LIDOCAINE 1% MPF 30 ML VIAL ONE (07:41)
[2019-03-22] MEDS ORDERED: LIDOCAINE VISCOUS 2% SOLN 15 ML UDC ONE (07:42)
[2019-03-22] MEDS ORDERED: propofoL 200 MG/20 ML VIAL IV ONE (07:56)
[2019-03-22] MEDS ORDERED: LIDOCAINE 1% MPF 5 ML VIAL ONE (07:56)
[2019-03-22] MEDS ORDERED: MIDAZOLAM HCL 2 MG/2 ML INJ ONE (07:56)
--- NOTE | 2019-03-22 09:45 | RAD REPORT ---
EXAM DESCRIPTION: RAD - Chest Single View - 03/22/2019 9:38 am CLINICAL HISTORY: S/P BRONCHOSCOPY, R/O PNEUMOTHORAX COMPARISON: Chest Single View dated 03/13/2019; Chest Abd Pelvis Wo Con dated 03/13/2019 TECHNIQUE: AP portable chest image was obtained 03/22/2019 9:38 am . FINDINGS: Post bronchoscopy chest film shows no pneumothorax and no pulmonary hemorrhage. Small righ t upper lobe mass is only faintly visible on plain film. Heart, vasculature and lung markings are acc entuated mildly by the portable technique and shallow inspiration. IMPRESSION: No post bronchoscopy pneumothorax or pulmonary hemorrhage.
--- NOTE | 2019-03-22 09:46 | P.OP ---
Date of Service: 03/22/19 (Bronchoscopy right upper lobe endobronchial biopsy wire brushings and BAL) Findings and Operative Technique Patient is 53 years of age evaluated by me for a right hilar mass mild hypercalcemia former smoker has the reason for bronchoscopy After obtaining informed consent from the patient she was premedicated by anesthesia finding normal vocal cords normal trachea normal fatou normal left- sided bronchial anatomy on the right side she has some abnormal thickening of the right upper lobe mucosa and no endobronchial the lesions visible in the right mid lobe and the right lower lobe Patient had significant bleeding I suspect from the nasal airways as difficult to do a bronchoscopy limited visualization I suspect she has underlying squamous cell cancer biopsies were obtained of the minor fatou and the upper lobe bifurcations patient also experienced desat at times blood pressure remained stable the bronchoscopy is nondiagnostic will refer her to thoracic surgery [place] for her to have endobronchial ultrasound guided biopsy
[2019-03-22 10:57] VITALS: BP 196/47; TEMP 97; O2SAT 98
--- NOTE | 2019-03-24 17:17 | RAD REPORT ---
EXAM DESCRIPTION: RAD - FLUORO-GUIDE FOR BRONCH [id number] - 03/24/2019 4:43 pm CLINICAL HISTORY: Lung mass FINDINGS: Ten fluoroscopic spot images obtained. Bronchoscopy performed by Dr. Patricia The bronchoscope has been placed into the right lung.
== END 2019-03-22 10:30 | disposition home or self-care (01) ==
LOC: OR 06:52
PROVIDERS: ATTEND Internal Medicine Sleep Medicine
PROC: 0BDC8ZX Extraction of Right Upper Lung Lobe, Via Natural or Artificial Opening Endoscopic, Diagnostic (ICD-10-PCS; 2019-03-22)
PROC: 0B9C8ZX Drainage of Right Upper Lung Lobe, Via Natural or Artificial Opening Endoscopic, Diagnostic (ICD-10-PCS; 2019-03-22)
PROC: 0BB48ZX Excision of Right Upper Lobe Bronchus, Via Natural or Artificial Opening Endoscopic, Diagnostic (ICD-10-PCS; principal; 2019-03-22 08:00)
DX: R91.8 Other nonspecific abnormal finding of lung field (principal); E83.52 Hypercalcemia; E11.9 Type 2 diabetes mellitus without complications; E07.9 Disorder of thyroid, unspecified; Z87.891 Personal history of nicotine dependence; Z88.8 Allergy status to other drugs, medicaments and biological substances; Z80.9 Family history of malignant neoplasm, unspecified
CPT/HCPCS: 31625; 31623; 31624; 88108 ×2; 88312; 82947; 88305 ×2; 87015; 87206; 87116; 87102; 71045; 76000; J2704; J2370; J2250; J7030

== ENCOUNTER 2019-09-28 13:38 | Emergency (ER) | payer BC ==
--- OUTSIDE RECORDS SUMMARY | 2019-09-28 13:41 | XMS REPORT | Clinical Summary ---
:1965 Author Organization [facility] Address [address] [place] [address] Care Team Providers Name Role Phone Susy Rivers Primary Care Provider Allergies Active Allergy Reactions Severity Noted Date Comments Conjugated Estrogens Hives High 04/25/2019 Medications Medication Sig Dispensed Refills Start Date End Date Status aspirin (ECOTRIN) 81 MG Take 81 mg by 0 Active enteric coated tablet mouth daily. dvpnyny-cqxmjpplvw-YBY- Take 1 capsule by 0 Active caff (FIORINAL WITH mouth every 4 CODEINE) 11-00-869-40 (four) hours as mg capsuleIndications: needed for pain acute pain .acute pain. carvediloL (COREG) Take 6.25 mg by 0 Active 3.125 MG tablet mouth 2 (two) times a day with meals. methylcellulose, Take by mouth. 0 Active laxative, (CITRUCEL) 500 mg tablet fluconazole (DIFLUCAN) Take 150 mg by 0 Active 150 MG tablet mouth once. glipiZIDE (GLUCOTROL) 5 Take 5 mg by 0 Active MG tablet mouth 2 (two) times a day before meals. levothyroxine Take 150 mcg by 0 Active (SYNTHROID) 150 mcg mouth daily. tablet pitavastatin calcium Take 4 mg by 0 Active (LIVALO) 4 mg tablet mouth daily. LORAZepam (ATIVAN) 0.5 Take 0.5 mg by 0 Active MG tablet mouth every 6 (six) hours as needed for anxiety. metaxalone (SKELAXIN) Take 800 mg by 0 Active 800 MG tablet mouth 3 (three) times a day. omeprazole (PriLOSEC) Take 40 mg by 0 Active 40 MG capsule mouth daily. pioglitazone (ACTOS) 30 Take 30 mg by 0 Active MG tablet mouth daily. predniSONE (DELTASONE) Take 10 mg by 0 Active 10 mg tablet mouth daily. Lactobacillus Take by mouth. 0 A ctive acidophilus (PROBIOTIC ORAL) sertraline (ZOLOFT) 50 Take 50 mg by 0 Active MG tablet mouth daily. docusate sodium (STOOL Take by mouth. 0 Active SOFTENER ORAL) dulaglutide 1.5 mg/0.5 Inject 1.5 mg 0 Active mL pen injector under the skin every 7 days. acetaminophen (TYLENOL) Take 500 mg by 0 Active 500 MG tablet mouth every 6 (six) hours as needed for mild pain. Active Problems Not on file Encounters Date Type Specialty Care Team Description 08/14/2019 Orders Only Cardiothoracic ProviderGiles MD 06/24/2019 Orders Only Cardiothoracic Provider, Giles Macedo MD 06/21/2019 Telephone Cardiothoracic [place], Giles Gu IA 05/22/2019 Orders Only Cardiothoracic Bijan, Lung mass (Pr imary Surgery ARMANDO Garcia Dx) 05/15/2019 Hospital Encounter [facility]othoracic [facility] Surgery MD Arturo 05/14/2019 Lab Lab [facility] Lung mass; MD Arturo Pre-operative l aboratory examination; Abnormal labora tory test result 05/14/2019 Hospital Encounter Radiology [facility] Lung mass ; MD Arturo Other nonspecif ic abnormal finding of lung field; Pre-op testing 05/14/2019 Extended Medical Cardiothoracic [facility] Lung nodu le Review Surgery MD Arturo (Primary Dx) 05/14/2019 Telephone Cardiothoracic Giles Diaz NP 05/14/2019 Telephone Cardiothoracic Meicandi, Lung mass (Pr imary Dx); Surgery Dona Gauthier NP Pre-operative laboratory examination; Abnormal labora tory test result 05/14/2019 Travel 05/13/2019 Telemedicine Cardiothoracic [facility] Lung mass (Pr imary Surgery MD Arturo Dx) 05/10/2019 Telephone Cardiothoracic Giles Thakkar MA 05/10/2019 Orders Only Cardiothoracic Emily, Lung mass (Pr imary Dx); Surgery Dona Gauthier NP Other nonspec ific abnormal finding of lung field; Pre-operative l aboratory examination; Pre-op testing 05/10/2019 Travel 05/07/2019 Surgery Cardioth[facility]acic [facility] FLEXIBLE Surgery MD Arturo BRONCHOSCOPY, Danyell MARCUS, ENDOBRONCHIAL ULTRASOUND WITH BIOPSY, 05/07/2019 Anesthesia Event Cardiothoracic Caleb Diallo, Surgery Modesta Beyer CRNA 05/07/2019 Hospital Encounter [facility] Other n onspecific Surgery MD Arturo abnormal findin g of lung field 05/07/2019 Travel 05/02/2019 Telephone Cardiothoracic mEily, Surgery Dona Gauthier NP 04/30/2019 Orders Only Cardiothoracic Provider, Giles Macedo MD 04/29/2019 Hospital Encounter Radiology [facility] MD 04/26/2019 Telephone Cardiothoracic Janett Alexis, Surgery MA 04/25/2019 Hospital Encounter Radiology [facility] MD 04/25/2019 Hospital Encounter Radiology [facility] MD 04/25/2019 Lab Lab [facility] Lung mass; MD Arturo Pre-operative l aboratory examination 04/25/2019 Office Visit Cardiothoracic [facility] Lung mass (Pr imary Dx); Surgery MD Arturo Pre-operative l aboratory examination 04/25/2019 Orders Only Cardiothoracic Provider, Giles Macedo MD 04/25/2019 Travel 04/23/2019 Travel 04/17/2019 Travel after 09/27/2018 Social History Tobacco Use Types Packs/Day Years Used Date Former Smoker Cigarettes 02 20 1974 - 2014 Smokeless Tobacco: Never Used Alcohol Use Drinks/Week oz/Week Comments Never Alcohol Habits Answer Date Recorded How often do you have a drink containing alcohol? Never 04/25/2019 How many drinks containing alcohol do you have on a typical Not asked day when you are drinking? How often do you have six or more drinks on one occasion? No t asked Sex Assigned at Date Recorded Not on file Job Start Date Occupation Industry Not on file Not on file Not on file Travel History Travel Start Travel End No recent travel history available. Last Filed Vital Signs Vital Sign Reading Time Taken Comments Blood Pressure 106/50 05/07/2019 2:51 PM CDT Pulse 80 05/07/2019 2:51 PM CDT Temperature 36.3 C (97.3 F) 05/07/2019 2:51 PM CDT Respiratory Rate 16 05/07/2019 2:51 PM CDT Oxygen Saturation 97% 05/07/2019 2:51 PM CDT Inhaled Oxygen Concentration - - Weight 101 kg (223 lb) 05/07/2019 9:57 AM CDT Height 172.7 cm (5' 8") 05/07/2019 9:57 AM CDT Body Mass Index 33.91 05/07/2019 9:57 AM CDT Plan of Treatment Health Maintenance Due Date Last Done Comments DIABETIC RETINAL EYE EXAM 1965 DIABETIC FOOT EXAM 1974 URINE MICROALBUMIN 1974 BREAST CANCER SCREENING 2014 COLONOSCOPY SCREENING 2014 SHINGLES VACCINES (#1) 2014 INFLUENZA VACCINE 11/07/2019 02/05/2015 CERVICAL CANCER SCREENING 05/06/2022 05/07/2019, 05/07/2019 , 05/07/2019 Procedures Procedure Name Priority Date/Time Associated Comments Diagnosis CT CHEST WO CONTRAST Routine 08/09/2019 ESTIMATED GFR Routine 05/14/2019 10:30 Results fo r this AM CDT procedure are i n the results section. TYPE AND SCREEN Routine 05/14/2019 10:30 Lung mass Results for this AM CDT Pre-operative procedure are in laboratory the results examination section. COMPREHENSIVE METABOLIC Routine 05/14/2019 10:30 Lung ma ss Results for this PANEL AM CDT Pre-operative procedure are in laboratory the results examination section. Abnormal laboratory test result CT CHEST WO CONTRAST Routine 05/14/2019 10:21 Lung mass Results for this AM CDT Other nonspecific procedure are in abnormal finding of the resu lts lung field section. Pre-op testing POC GLUCOSE Routine 05/07/2019 1:27 Results for this PM CDT procedure are i n the results section. XR CHEST 1 VW PORTABLE Routine 05/07/2019 1:20 R esults for this PM CDT procedure are i n the results section. WI AN ELECTIVE Routine 05/07/2019 12:45 Results f or this ENDOTRACHEAL AIRWAY PM CDT procedur e are in the results section. CYTOLOGY Routine 05/07/2019 12:43 Results for this (NON-GYNECOLOGICAL) PM CDT procedur e are in REQUEST the results section. CYTOLOGY Routine 05/07/2019 12:41 Results for this (NON-GYNECOLOGICAL) PM CDT procedur e are in REQUEST the results section. CYTOLOGY Routine 05/07/2019 12:38 Results for this (NON-GYNECOLOGICAL) PM CDT procedur e are in REQUEST the results section. FUNGUS SMEAR Timed 05/07/2019 12:23 Results for this PM CDT procedure are i n the results section. GRAM STAIN Timed 05/07/2019 12:23 Results for this PM CDT procedure are i n the results section. AFB STAIN Timed 05/07/2019 12:23 Results for this PM CDT procedure are i n the results section. RESPIRATORY CULTURE Timed 05/07/2019 12:23 Other nonspecific Results for this PM CDT abnormal finding of procedur e are in lung field the results section. AFB CULTURE Timed 05/07/2019 12:23 Other nonspecific Result s for this PM CDT abnormal finding of procedur e are in lung field the results section. FUNGUS CULTURE Timed 05/07/2019 12:23 Other nonspecific Resu lts for this PM CDT abnormal finding of procedur e are in lung field the results section. TISSUE CULTURE Timed 05/07/2019 12:10 Results f or this PM CDT procedure are i n the results section. GRAM STAIN Timed 05/07/2019 12:10 Results for this PM CDT procedure are i n the results section. AFB STAIN Timed 05/07/2019 12:10 Results for this PM CDT procedure are i n the results section. FUNGUS SMEAR Timed 05/07/2019 12:10 Results for this PM CDT procedure are i n the results section. AFB CULTURE Timed 05/07/2019 12:10 Other nonspecific Result s for this PM CDT abnormal finding of procedur e are in lung field the results section. FUNGUS CULTURE Timed 05/07/2019 12:10 Other nonspecific Resu lts for this PM CDT abnormal finding of procedur e are in lung field the results section. ANAEROBIC CULTURE Timed 05/07/2019 12:10 Other nonspecific R esults for this PM CDT abnormal finding of procedur e are in lung field the results section. POC GLUCOSE Routine 05/07/2019 10:00 Results for this AM CDT procedure are i n the results section. CT CHEST EXTERNAL STUDY Routine 04/26/2019 10:15 Results for this AM CDT procedure are i n the results section. CT CHEST WO CONTRAST Routine 04/26/2019 CT CHEST EXTERNAL STUDY Routine 04/26/2019 ESTIMATED GFR Routine 04/25/2019 3:20 Results fo r this PM CDT procedure are i n the results section. COMPREHENSIVE METABOLIC Routine 04/25/2019 3:20 Lung ma ss Results for this PANEL PM CDT Pre-operative procedure are in laboratory the results examination section. HC COMPLETE BLD COUNT Routine 04/25/2019 3:20 Lung mass Results for this W/AUTO DIFF PM CDT Pre-operative procedure are in laboratory the results examination section. PROTHROMBIN TIME WITH Routine 04/25/2019 3:20 Lung mass Results for this INR PM CDT Pre-operative procedure are in laboratory the results examination section. PARTIAL THROMBOPLASTIN Routine 04/25/2019 3:20 Lung mas s Results for this TIME (PTT) PM CDT Pre-operative procedure are in laboratory the results examination section. ECG PRE/POST OP Routine 04/25/2019 2:25 Lung mass Results for this PM CDT procedure are i n the results section. MRI HEAD EXTERNAL STUDY Routine 03/29/2019 1:46 Results for this PM ED TRANSPORTER procedure are i n the results section. MRI BRAIN W WO CONTRAST Routine 03/29/[address] WHOLE BODY Routine 03/28/2019 9:06 Result s for this EXTERNAL STUDY AM ED TRANSPORTER procedure are in the results section. PET CT SKULL BASE TO Routine 03/28/2019 MID THIGH after 09/27/[address] Chest Wo Contrast (08/09/2019)Only the most recent of3 resultswithin the time period is included. Narrative Performed At This result has an attachment that is no t available. Estimated GFR (05/14/2019 10:30 AM CDT)Only the most recent of2 resultswithin the time period is included. Estimated GFR 38 (A) mL/min/1.73 [facility] Comment: m2 HOSPITAL Catergory Units Interpretation G1 >=90 Normal or high G2 60-89 Mildly decreased G3a 45-59 Mildly to moderately decreas ed G3b 30-44 Moderately to severely decre ased G4 15-29 Severely decreased G5 <15 Kidney failure The eGFR was calculated using the Chronic Kidney Disea se Epidemiology Collaboration (CKD-EPI) equation. Interpretation is based on recommendations of the National Kidney Foundation-Kidney Disease Outcomes Jorge Alberto lity Initiative (NKF-KDOQI) published in 2014. Specimen Performing Organization Address City/State/Zipcode Phone Number [facility] DEPARTMENT OF PATHOLOGY AND [address] [place], [place] [address] [facility] [address] [place] [address] Type and screen (05/14/2019 10:30 AM CDT) Pathologist Sig nature ABO grouping B [facility] Rh type POS [facility] Antibody screen (gel) NEG [facility] Specimen Blood Performing Organization Address City/State/Zipcode Phone Number [facility] DEPARTMENT OF PATHOLOGY AND [address] [place] [phone] [facility] [address] [place] [address] Comprehensive metabolic panel (05/14/2019 10:30 AM CDT)Only the most recent of2 resultswithin the time period is included. Sodium 139 135 - 148 [facility] mEq/L [facility] Potassium 4.7 3.5 - 5.0 [facility] mEq/L [facility] Chloride 101 98 - 112 [facility] mEq/L [facility] CO2 25 24 - 31 mEq/L [facility] Anion gap 13@ANIO 7 - 15 mEq/L [facility] BUN 26 (H) 6 - 20 mg/dL [facility] Creatinine 1.53 (H) 0.50 - 0.90 [facility] mg/dL [facility] Glucose 145 (H) 65 - 99 mg/dL [facility] Calcium 11.5 (H) 8.3 - 10.2 [facility] mg/dL [facility] Protein 7.8 6.3 - 8.3 [facility] Comment: g/dL [facility] [place] 4.6-7.0 g/dL 1 week 4.4-7.6 g/dL 7 months-1year 5.1-7.3 g/dL 1-2 years 5.6-7.5 g/dL >3 years 6.0-8.0 g/dL 18-150 6.3-8.3 g/dL Albumin 3.3 (L) 3.5 - 5.0 [facility] g/dL [facility] A/G ratio 0.7 0.7 - 3.8 [facility] Alkaline phosphatase 82 35 - 104 U/L [facility] AST 23 10 - 35 U/L [facility] ALT 31 5 - 50 U/L [facility] Total bilirubin 0.3 0.0 - 1.2 [facility] mg/dL HOSPITAL Specimen Blood Performing Organization Address City/State/Zipcode Phone Number [facility] DEPARTMENT OF PATHOLOGY AND [address] [place] [address] [phone] [address] POC glucose (05/07/2019 1:27 PM CDT)Only the most recent of2 resultswithin the time period is included. Pathologist Sig nature POC glucose 112 (H) 65 - 99 mg/dL [facility] Comment: HOSPITAL Inspector Machine Cut Glass Name: Walt Vera Device ID: [id number] Chartable: No Action Needed Specimen Blood Performing Organization Address City/[facility]/Zipcode Phone Number [facility] DEPARTMENT OF PATHOLOGY AND [address] [place] [address] [phone] [address] XR Chest 1 Vw Portable (05/07/2019 1:20 PM CDT) Specimen Narrative Performed At EXAMINATION: XR CHEST 1 VW PORTABLE [facility] CLINICAL HISTORY: Sp EBUS COMPARISON: CT chest 04/26/2019 IMPRESSION: Heart and mediastinum: Right greater than left perihil ar soft tissue nodularity. Cardiac silhouette is within normal limits. Lungs and pleura: Hazy bibasilar airspace opacificatio ns. Trace fluid within the right minor fissure. No pneum othorax. Bones and soft tissues: No acute abnorma lity. [facility]-[id number] Dictated and approved by ceo and president/fellow: Randall Alicea M.D. I, Yaw Michaud MD, personally reviewed the images and resident's/fellow's findings and agree with the final report. Procedure Note Hm Interface, Radiology Results Incoming - 05/07/2019 5:18 PM CDT EXAMINATION: XR CHEST 1 VW PORTABLE CLINICAL HISTORY: Sp EBUS COMPARISON: CT chest 04/26/2019 IMPRESSION: Heart and mediastinum: Right greater mary n left perihilar soft tissue nodularity. Cardiac silhouette is within normal limits. Lungs and pleura: Hazy bibasilar airspac e opacifications. Trace fluid within the right minor fissure. No pneumothorax. Bones and soft tissues: No acute abnorma lity. [facility]-[id number] Dictated and approved by radiology resid ent/fellow: Crystal Alicea M.D. I, Yaw Michaud MD, personally reviewed the images and resident's/fellow's findings and agree with the final report. Performing Organization Address City/[facility]/Zipcode Phone Number [facility] [address] [place] [address] Airway (05/07/2019 12:45 PM CDT) Narrative Performed At Caleb Diallo MD 05/07/2019 12:46 PM Airway Performed by: Caleb Diallo MD Authorized by: Caleb Diallo MD Location: OR Urgency: Elective Difficult Airway: No Preoxygenated with 100% O2: Yes C-spine Precautions Maintained Throughou t: No Mask Ventilation: Assisted mask Final Airway Type: Endotracheal airway Final Endotracheal Airway: ETT Cuffed: Yes Technique Used: Direct laryngoscopy Insertion Site: Oral Blade Type: Ledy Laryngoscope Blade/Videolaryngoscope Yordy de Size: 3 ETT Size (mm): 8.0 Cuff at minimum occlusion pressure: Yes Measured from: Gums ETT to Gums (cm): 22 Placement Verified by: direct visualizat ion Laryngoscopic view: Grade I - full vie w of glottis Rapid Sequence Induction (RSI): No Modified RSI: Yes Number of Attempts at Approach: 1 Cytology (non-gynecological) request (05/07/2019 12:43 PM CDT)Only the most recent of3 resultswithin the time period is included. [facility] DEPARTMENT OF PATHOLOGY AND GENOMIC MEDICINE Cytology See link below [facility] DEPARTMENT OF (non-gynecological) for PDF Lab PATHOLOGY AND report Report GENOMIC MEDICINE Result status This is Final [facility] DEPARTMENT OF Report for PATHOLOGY AND [id number] GENOMIC MEDICINE Specimen Performing Organization Address [facility]/Zipcode Phone Number [facility] DEPARTMENT OF PATHOLOGY AND [address] [place], [place] [phone] GENOMIC MEDICINE Respiratory culture (05/07/2019 12:23 PM CDT) Respiratory culture No growth after 2 days. [facility] isolate Comment: HOSPITAL Specimen Information Specimen Source: Bronchial alveolar lavage Specimen Site: Lung: Right Middle Lobe Specimen Bronchial alveolar lavage - Lung Performing Organization Address City/[facility] Phone Number [facility] DEPARTMENT OF PATHOLOGY AND [address] [place] [phone] [place] [phone] Fungus smear (05/07/2019 12:23 PM CDT)Only the most recent of2 resultswithin the time period is included. Pathologist Sig nature Fungus smear No fungi observed. [facility] Comment: HOSPITAL Specimen Information Specimen Source: Bronchial alveolar lavage Specimen Site: Lung: Right Middle Lobe Specimen Bronchial alveolar lavage Performing Organization Address [facility] Phone Number [facility] DEPARTMENT OF PATHOLOGY AND [address] [place] [address] [place] [phone] AFB culture (05/07/2019 12:23 PM CDT)Only the most recent of2 resultswithin the time period is included. AFB culture No growth after 6 weeks of incubation. [facility] isolate Comment: HOSPITAL Specimen Information Specimen Source: Bronchial alveolar lavage Specimen Site: Lung: Right Middle Lobe Specimen Bronchial alveolar lavage - Lung Performing Organization Address [facility] Phone Number [facility] DEPARTMENT OF PATHOLOGY AND [address] [place] [address] [place] [phone] Gram stain (05/07/2019 12:23 PM CDT)Only the most recent of2 resultswithin the time period is included. Gram stain isolate No WBC's or organisms seen. [facility] Comment: HOSPITAL Specimen Information Specimen Source: Bronchial alveolar lavage Specimen Site: Lung: Right Middle Lobe Specimen Bronchial alveolar lavage Performing Organization Address [facility] Phone Number [facility] DEPARTMENT OF PATHOLOGY AND [address] [place] [address] [place] [phone] AFB stain (05/07/2019 12:23 PM CDT)Only the most recent of2 resultswithin the time period is included. Pathologist Sig nature AFB stain No acid fast bacilli (AFB) seen. [facility] Comment: HOSPITAL Specimen Information Specimen Source: Bronchial alveolar lavage Specimen Site: Lung: Right Middle Lobe Specimen Bronchial alveolar lavage Performing Organization Address [facility] Phone Number [facility] DEPARTMENT OF PATHOLOGY AND [address] [place] [phone] [place] [phone] Fungus culture (05/07/2019 12:23 PM CDT)Only the most recent of2 resultswithin the time period is included. [facility] Fungus culture No growth after 4 weeks of incubation. [facility] isolate Comment: HOSPITAL Specimen Information Specimen Source: Bronchial alveolar lavage Specimen Site: Lung: Right Middle Lobe Specimen Bronchial alveolar lavage - Lung Performing Organization Address [facility] Phone Number [facility] DEPARTMENT OF PATHOLOGY AND [address] [place] [phone] Tissue culture (05/07/2019 12:10 PM CDT) [facility] Tissue culture No growth after [address] [address] isolate Comment: HOSPITAL Specimen Information Specimen Source: Biopsy Specimen Site: Lung: STATION 10R- for culture Specimen Biopsy Performing Organization Address [facility] Phone Number [facility] DEPARTMENT OF PATHOLOGY AND [address] [place] [phone] Anaerobic culture (05/07/2019 12:10 PM CDT) [facility] Anaerobic culture No anaerobic organisms isolated. SOURAV [facility] isolate Comment: HOSPITAL Specimen Information Specimen Source: Biopsy Specimen Site: Lung: STATION 10R- for culture Specimen Tissue - Lung Performing Organization Address [facility] Phone Number [facility] DEPARTMENT OF PATHOLOGY AND [address] [place] [phone] Chest External Study (04/26/2019 10:15 AM CDT)Only the most recent of2 resultswithin the time period is included. Specimen Narrative Performed At This exam was not acquired at a [facility] t facility and has not been [facility] interpreted by a [facility] Provider. T he exam was imported into our imaging system. Performing Organization Address City/[facility]/Zipcode Phone Number [facility] [address] [place] [phone] Partial thromboplastin time, activated (04/25/2019 3:20 PM CDT) Pathologist [facility] PTT 28.3 23.0 - 36.0 [facility] Comment: [facility] PTT therapeutic range for unfractionated heparin is 61.0-112.0 seconds which corresponds to Anti-Xa 0.3-0.7 U/ml. Specimen Blood Performing Organization Address City/State/Zipcode Phone Number [facility] DEPARTMENT OF PATHOLOGY AND [address] [place] [address] [address] Prothrombin time with INR (04/25/2019 3:20 PM CDT) [facility] Prothrombin time 13.1 11.5 - 14.5 [facility] INR 1.0 [place] Comment: [facility] International Normalized Ratio (INR) is a therapeu [facility] monitoring tool for patients who are stable on oral anticoagulant therapy. An INR of 2.0-3.0 is suggested for deep vein thrombosis/pulmonary embolism. Specimen Blood Performing Organization Address City/[facility] Phone Number [facility] DEPARTMENT OF PATHOLOGY AND [address] [place], [place] [phone] [address] [phone] CBC with platelet and differential (04/25/2019 3:20 PM CDT) [facility] WBC 9.39 4.50 - 11.00 [facility] k/uL [facility] RBC 4.10 (L) 4.20 - 5.50 [facility] HGB 11.9 (L) 12.0 - 16.0 [facility] HCT 37.7 37.0 - 47.0 % [facility] MCV 92.0 82.0 - 100.0 [facility] MCH 29.0 27.0 - 34.0 pg [facility] MCHC 31.6 31.0 - 37.0 [facility] [facility] RDW - SD 49.6 37.0 - 55.0 fL [facility] MPV 9.8 8.8 - 13.2 fL [facility] Platelet count 272 150 - 400 k/uL [facility] Nucleated RBC 0.00 /100 WBC [facility] Neutrophils 79.3 (H) 39.0 - 69.0 % [facility] Lymphocytes 6.4 (L) 25.0 - 45.0 % [facility] Monocytes 8.6 0.0 - 10.0 % [facility] Eosinophils 3.3 0.0 - 5.0 % [facility] Basophils 0.7 0.0 - 1.0 % [facility] Immature granulocytes 1.7 0.0 - 1.0 % [facility] (H)Comment: HOSPITAL "Immature granulocytes" (promyelocytes , myelocytes, metamyelocytes ) Specimen Blood Performing Organization Address City/[facility]/Zipcode Phone Number [facility] DEPARTMENT OF PATHOLOGY AND [address] [place] [address] [phone] GENOMIC MEDICINE [address] [address] ECG Pre/Post Op (04/25/2019 2:25 PM CDT) Pathologist Sig nature Ventricular rate 83 [facility] MUSE Atrial rate 83 [facility] MUSE WI interval 136 [facility] QRSD interval 92 [facility] MUSE QT interval 354 [facility] M[facility] QTC interval 415 [facility] M[facility] P axis 1 53 [facility] QRS axis 1 -8 [facility] MUSE T wave axis 26 [facility] MUSE EKG impression Normal sinus [facility] MUSE rhythm-Normal ECG-No previous ECGs available-Electronicall y Signed By Alex Verma MD ([id number]) on 04/25/2019 7:24:00 PM Specimen Narrative Performed At This result has an attachment that is no t available. Performing Organization Address [facility] Phone Number [facility] MUSE [address] [place] [address] MRI Head External Study (03/29/2019 1:46 PM ED TRANSPORTER) Specimen Narrative Performed At This exam was not acquired at a Methodis t facility and has not been [facility] interpreted by a Orthodox Provider. T he exam was imported into our imaging system. Performing Organization Address City/[facility]/Zipcode Phone Number [facility] [address] [place] [address] MRI Brain W Wo Contrast (03/29/2019) Narrative Performed At This result has an attachment that is no t available. PET/CT Whole Body External Study (03/28/2019 9:06 AM ED TRANSPORTER) Specimen Narrative Performed At This exam was not acquired at a Methodis t facility and has not been [facility] interpreted by a Orthodox Provider. T he exam was imported into our imaging system. Performing Organization Address City/[facility]/Zipcode Phone Number [facility] [address] [place] [address] PET/CT Skull Base To Mid Thigh (03/28/2019) Narrative Performed At This result has an attachment that is no t available. after 09/27/2018 Advance Directives For more information, please contact: [phone] Type Date Recorded Patient Practice Support Specialist Explanati on Advance Directives, Living Will 05/07/2019 9:12 AM and Medical Power of Route Service Manager
--- OUTSIDE RECORDS SUMMARY | 2019-09-28 13:42 | XMS REPORT | Continuity of Care Document ---
:1965 Author Organization [facility] t Address [address] [place] [address] Care Team Providers Name Role Phone Susy Berman Primary Care Physician Mitchel AVALOS Attending Clinician Mich ROBERTS Attending Clinician Unavailable Bijan ROBERTS Attending Clinician Unavailable Cruzito AVALOS, Y.H. Attending Clinician Disha Diaz NP Attending Clinician Yoel AVALOS Attending Clinician Marla Juarez CRNA Attending Clinician Reuben ROBERTS Attending Clinician Unavailable CRUZITO Admitting Clinician Unavailable Payers Payer Name Policy Type Policy Number Effective Date Expiration Date S miracle BCBSBCBS xxxxxxxxxxxx 2015 [place] CHOICE 00:00:00 Shinto PPO/FEDERAL EMPL PPOxxxxxxxxxxx x1-Pre sentPPO Problems This patient has no known problems. Allergies, Adverse Reactions, Alerts Allergy Allergy Status Severity Reaction(s) Onset Inactive Treating Comm ents Source Name Type Date Date Clinician Conjugat Propensi Active Hives [place] ty to 04-24 [facility] Estrogen adverse 00:00: st s reaction 00 s to drug Social History Social Habit Start Date Stop Date Quantity Comments Source History of tobacco Current smoker Ho emmy Shinto use History [facility] Meth odist Alcohol Std Drinks History [facility] odist Alcohol Binge Sex Assigned At [facility] ethodist Cigarettes smoked 2019-05-10 2019-05-10 Madan Moody current (pack per 00:00:00 00:00:00 day) - Reported Cigarette 2019-05-10 2019-05-10 Madan Jones ist pack-years 00:00:00 00:00:00 Alcohol intake 2019-05-10 2019-05-10 Lifetime Madan Jackson thodist 00:00:00 00:00:00 non-drinker (finding) History SDOH 2019-04-25 2019-04-25 1 Madan Meth odist Alcohol Frequency 00:00:00 00:00:00 Smoking Status Start Date Stop Date Source Former smoker 2019-05-10 00:00:00 2019-05-10 00:00:00 Madan Moody Medications Ordered Filled Start Stop Current Ordering Indication Dosage Frequency Signature Comments Components Source Medication Medication Date Date Medication? Clinician (SIG) Name Name aspirin 2020-0 Yes 81mg QD Take 81 mg [place] (ECOTRIN) 4-03 by mouth Method i 81 MG 14:51: daily. st enteric 45 coated tablet codeine-but 2020-0 Yes acute pain 1{capsu Q4H Take 1 [facility] albital-ASA 4-03 le} capsule by Ne thodi -caff 14:51: mouth st (FIORINAL 45 every 4 WITH (four) CODEINE) hours as 30-50-325-4 needed for 0 mg pain capsule .acute pain. carvediloL 2020-0 Yes 6.25mg Q.5D Take 6.25 [facility] (COREG) 4-03 mg by Methodi 3.125 MG 14:51: mouth 2 st tablet 45 (two) times a day with meals. methylcellu 2020-0 Yes Take by Abebe almaguer lose, 4-03 mouth. [facility]i laxative, 14:51: st (CITRUCEL) 45 500 mg tablet fluconazole 2020-0 Yes 150mg Take 150 H ourosina (DIFLUCAN) 4-03 mg by Methodi 150 MG 14:51: mouth st tablet 45 once. glipiZIDE 2020-0 Yes 5mg Q.5D Take 5 mg Abebe almaguer (GLUCOTROL) 4-03 by mouth 2 Ne thodi 5 MG tablet 14:51: (two) st 45 times a day before meals. levothyroxi 2020-0 Yes 150ug QD Take 150 H ourosina ne 4-03 mcg by Methodi (SYNTHROID) 14:51: mouth st 150 mcg 45 daily. tablet pitavastati 2020-0 Yes 4mg QD Take 4 mg [place] n calcium 4-03 by mouth Method i (LIVALO) 4 14:51: daily. st mg tablet 45 LORAZepam 2020-0 Yes .5mg Q6H Take 0.5 [place] (ATIVAN) 4-03 mg by Methodi 0.5 MG 14:51: mouth st tablet 45 every 6 (six) hours as needed for anxiety. metaxalone 2020-0 Yes 800mg Q.[id number] Take 800 [facility] (SKELAXIN) 4-03 [id number] mg by Ne thodi 800 MG 14:51: 3D mouth 3 st tablet 45 (three) times a day. omeprazole 2020-0 Yes 40mg QD Take 40 mg [place] (PriLOSEC) 4-03 by mouth Metho di 40 MG 14:51: daily. st capsule 45 pioglitazon 2020-0 Yes 30mg QD Take 30 mg [facility] e (ACTOS) 4-03 by mouth Method i 30 MG 14:51: daily. st tablet 45 predniSONE 2020-0 Yes 10mg QD Take 10 mg [place] (DELTASONE) 4-03 by mouth Meth dorothy 10 mg 14:51: daily. st tablet 45 Lactobacill 2020-0 Yes Take by Abebe medina 4-03 mouth. Methodi acidophilus 14:51: st (PROBIOTIC 45 ORAL) sertraline 2020-0 Yes 50mg QD Take 50 mg [place] (ZOLOFT) 50 4-03 by mouth Meth dorothy MG tablet 14:51: daily. st 45 docusate 2020-0 Yes Take by Eliuto n sodium 4-03 mouth. Methodi (STOOL 14:51: st SOFTENER 45 ORAL) dulaglutide 2020-0 Yes 1.5mg Q1W Inject 1.5 [facility] 1.5 mg/0.5 4-03 mg under Metho di mL pen 14:51: the skin st injector 45 every 7 days. acetaminoph 2020-0 Yes 500mg Q6H Take 500 [place] en 4-03 mg by Methodi (TYLENOL) 14:51: mouth st 500 MG 45 every 6 tablet (six) hours as needed for mild pain. Vital Signs Vital Name Observation Time Observation Value Comments Source Systolic blood 2019-05-07 14:51:00 106 mm[Hg] Eliuto n Shinto pressure Diastolic blood 2019-05-07 14:51:00 50 mm[Hg] Júnior on Shinto pressure Heart rate 2019-05-07 14:51:00 80 /min Madan Shinto Body temperature 2019-05-07 14:51:00 36.28 Amalia Eliu ton Shinto Respiratory rate 2019-05-07 14:51:00 16 /min Eliu urbano Shinto Oxygen saturation in 2019-05-07 14:51:00 97 /min Madan Moody Arterial blood by Pulse oximetry Body height 2019-05-07 09:57:00 172.7 cm Madan Moody Body weight 2019-05-07 09:57:00 101.152 kg Madan Moody BMI 2019-05-07 09:57:00 33.91 kg/m2 Madan Moody Procedures Procedure Date / Time Performing Clinician Source Performed CT CHEST WO CONTRAST 2019-08-09 00:00:00 Provider, Historical Alfonzo Moody COMPREHENSIVE METABOLIC 2019-05-14 10:30:00 Aubrey [place] PANEL TYPE AND SCREEN 2019-05-14 10:30:00 Aubrey [place] Me thodist ESTIMATED GFR 2019-05-14 10:30:[address] CHEST WO CONTRAST 2019-05-14 10:21:21 Aubrey [place] on Shinto POC GLUCOSE 2019-05-07 13:27:00 [place] [place] Me thodist XR CHEST 1 VW PORTABLE 2019-05-07 13:20:00 Eliu Ball Shinto Juan Carlos W[place] AN ELECTIVE 2019-05-07 12:45:54 Caleb Diallo Meth odist ENDOTRACHEAL AIRWAY CYTOLOGY 2019-05-07 12:43:00 [place] [place] Me thodist (NON-GYNECOLOGICAL) REQUEST CYTOLOGY 2019-05-07 12:41:00 [place] Me thodist (NON-GYNECOLOGICAL) REQUEST CYTOLOGY 2019-05-07 12:38:00 [place] Me thodist (NON-GYNECOLOGICAL) REQUEST FUNGUS CULTURE 2019-05-07 12:23:00 Aubrey [place] Me thodist AFB CULTURE 2019-05-07 12:23:00 Aubrey [place] Ne thodist RESPIRATORY CULTURE 2019-05-07 12:23:00 Aubrey East Shinto AFB STAIN 2019-05-07 12:23:00 Aubrey [place] Ne thodist FUNGUS SMEAR 2019-05-07 12:23:00 Aub[facility] [place] Ne thodist ANAEROBIC CULTURE 2019-05-07 12:10:00 Aubrey [place] Shinto FUNGUS CULTURE 2019-05-07 12:10:00 Aubrey [place] Ne thodist AFB CULTURE 2019-05-07 12:10:00 Aub[facility] [place] Ne thodist AFB STAIN 2019-05-07 12:10:00 Aubrey [place] Ne thodist GRAM STAIN 2019-05-07 12:10:00 [facility] [place] Ne thodist TISSUE CULTURE 2019-05-07 12:10:00 Aubrey [place] Ne jeremyodist POC GLUCOSE 2019-05-07 10:00:[address] CHEST EXTERNAL STUDY 2019-04-26 10:15:[address] CHEST EXTERNAL STUDY 2019-04-26 00:00:00 Provider, Historical Madan Moody CT CHEST WO CONTRAST 2019-04-26 00:00:00 Provider, Historical Alfonzo Moody PARTIAL THROMBOPLASTIN 2019-04-25 15:20:00 Aubrey [place] TIME (PTT) PROTHROMBIN TIME WITH INR 2019-04-25 15:20:00 Aubrey East HC COMPLETE BLD COUNT 2019-04-25 15:20:00 Aubrye East W/AUTO DIFF COMPREHENSIVE METABOLIC 2019-04-25 15:20:00 Aubrey [place] PANEL ESTIMATED GFR 2019-04-25 15:20:00 Aubrey East Ne thodist ECG PRE/POST OP 2019-04-25 14:25:23 Aubrey [place] [facility]odist MRI HEAD EXTERNAL STUDY 2019-03-29 13:46:00 Aubrey East Alfonzo booth Shinto MRI BRAIN W WO CONTRAST 2019-03-29 00:00:[address] WHOLE BODY EXTERNAL 2019-03-28 09:06:00 Aubrey East STUDY PET CT SKULL BASE TO MID 2019-03-28 00:00:00 ProviderMadyson THIGH Plan of Care Planned Activity Planned Date Details Comments Source Future Scheduled 2022-05-06 Screening for [place] [facility] thodist Test 00:00:00 malignant neoplasm of cervix (procedure) [code = 000726290] Future Scheduled 2019-11-07 INFLUENZA VACCINE [place] [facility] Test 00:00:00 [code = INFLUENZA VACCINE] Future Scheduled 2014 BREAST CANCER [place] Me thodist Test 00:00:00 SCREENING [code = BREAST CANCER SCREENING] Future Scheduled 2014 COLONOSCOPY SCREENING [place] [facility] Test 00:00:00 [code = COLONOSCOPY SCREENING] Future Scheduled 2014 SHINGLES VACCINES (#1) [place] [facility] Test 00:00:00 [code = SHINGLES VACCINES (#1)] Future Scheduled 1974 DIABETIC FOOT EXAM [place] [facility] Test 00:00:00 [code = DIABETIC FOOT EXAM] Future Scheduled 1974 URINE MICROALBUMIN [place] [facility] Test 00:00:00 [code = URINE MICROALBUMIN] Future Scheduled 1964 DIABETIC RETINAL EYE Abebe ston Shinto Test 00:00:00 EXAM [code = DIABETIC RETINAL EYE EXAM] Encounters Start End Encounter Admission Attending Care Care Encounter Source Date/Time Date/Time Type Type Clinicians Facility Department ID 2019-05-14 2019-05-14 Outpatient [facility] [id number] [place] 00:00:00 00:00:00 AUBREY [address] 2019-05-14 2019-05-14 Outpatient [facility] [id number] [place] 00:00:00 00:00:00 AUBREY [address] 2019-05-13 2019-05-13 Outpatient [facility] [id number] [place] 00:00:00 00:00:00 EDWARD [address] 2019-05-07 2019-05-07 Outpatient [facility] [id number] [place] 00:00:00 00:00:00 EDWARD [address] 2019-04-29 2019-04-29 Outpatient [facility] [id number] [place] 00:00:00 00:00:00 EDWARD [address] 2019-04-25 2019-04-25 Outpatient [facility], [facility] [id number] [place] 00:00:00 00:00:00 EDWARD [address] 2019-04-25 2019-04-25 Outpatient [facility], [facility] [id number] [place] 00:00:00 00:00:00 EDWARD [address] 2019-04-25 2019-04-25 Outpatient [facility] [id number] [place] 00:00:00 00:00:00 EDWARD [address] 2019-04-25 2019-04-25 Outpatient [facility] [id number] [place] 00:00:00 00:00:00 EDWARD [address] Results Test Description Test Time Test Comments Results Result Comments Source AFB culture 2019-06-19 00:13:28 Test Item Value Reference Range Interpretation Comme nts AFB culture isolate No growth after 6 weeks of Specimen InformationSpecimen (test code = 543-9) incubation. Source: Bronchial alveolar lavageSpecimen Site: Lung: Right Middle Lobe [place] MethodistFungus [id number] 00:15:17 Test Item Value Reference Range Interpretation Comments Fungus culture No growth Specimen isolate (test after 4 weeks InformationSp ecimen code = 1441) of Source: Bronchi al alveolar incubation. lavageSpecimen Site: Lung: Right Middle Lo be [place] MethodistType and [id number] 11:24:00 Test Item Value Reference Range Interpretation Comments ABO grouping (test code = 883-9) B Rh type (test code = 98032-8) POS Antibody screen (gel) (test code = NEG 890-4) [place] MethodistComprehensive metabolic [id number] 11:11:05 Test Item Value Reference Range Interpretation Comments Sodium (test code = 139 135- 148 mEq/L 2951-2) Potassium (test code = 4.7 3.5- 5.0 mEq/L 2823-3) Chloride (test code = 101 98- 112 mEq/L 2074-0) CO2 (test code = 2027-) 25 24- 31 mEq/L Anion gap (test code = 13@ANIO 7- 15 mEq/L 19986-1) BUN (test code = 3094-0) 26 mg/dL 6-20 H Creatinine (test code = 1.53 mg/dL 0.5-0.9 H 2160-0) Glucose (test code = 145 mg/dL 65-99 H 2345-7) Calcium (test code = 11.5 mg/dL 8.3-10.2 H 92289-1) Protein (test code = 7.8 g/dL 6.3-8.3 -[place] n 2885-2) 4.6-7.0 g/dL1 week 4.4-7 .6 g/dL7 months-1y ear 5.1-7 .3 g/dL1-2 years 5.6-7 .5 g/dL>3 years 6.0-8 .0 g/wC00-893 6.3-8 .3 g/dL Albumin (test code = 3.3 g/dL 3.5-5 L 1751-7) A/G ratio (test code = 0.7 0.7-3.8 1759-0) Alkaline phosphatase 82 U/L 35-104 (test code = 6768-6) AST (test code = 1920-8) 23 U/L 10-35 ALT (test code = 1742-6) 31 U/L 5-50 Total bilirubin (test 0.3 mg/dL 0-1.2 code = 1974-2) Lab Interpretation (test Abnormal code = 36476-0) [place] MethodistEstimated [id number] 11:11:05 Test Item Value Reference Range Interpretation Comments Estimated GFR (test 38 mL/min/1.73 m2 Tory quintanilla Units code = 5488) InterpretationG 1 >=90 Anne l or highG2 60-89 Mildly decrease dG3a 45-59 Mil dly to moderately decr urpkaA6u 30-44 Moderately to s everely decreasedG4 15-29 Severe ly decreasedG5 <15 Kidney martine lureThe eGFR was calcul ated using the Chron ic Kidney Disease Epidemiology Collaboration ( CKD-EPI) equation. Interpretation is based on recommendati ons of the [facility]-Kidn ey Disease Outcome s Quality Initiat latha (NKF-KDOQI) pub lished in 2013. Lab Interpretation Abnormal (test code = 42624-9) Madan MethodistAnaerobic [id number] 08:22:45 Test Item Value Reference Range Interpretation Comments Anaerobic No anaerobic Specimen culture isolate organisms InformationS pecimen (test code = isolated. Source: BiopsyS pecimen 552) Site: Lung: STA TION 10R- for culture [place] MethodistTissue [id number] 18:49:39 Test Item Value Reference Range Interpretation Comments Tissue culture No growth Specimen isolate (test after 3 days. InformationSp ecimen code = 95066-9) Source: Biop sySpecimen Site: Lung: STA TION 10R- for culture [facility] MethodistRespiratory [id number] 19:22:32 Test Item Value Reference Range Interpretation Comments Respiratory No growth Specimen culture isolate after 2 InformationS pecimen (test code = days. Source: Bronchi al 19791-3) alveolar lavage Specimen Site: Lung: Rig ht Middle Lobe [place] MethodistFungus [id number] 12:01:10 Test Item Value Reference Range Interpretation Comments Fungus smear No fungi Specimen (test code = observed. InformationSpec imen Source: 1443) Bronchial alveo lar lavageSpecimen Site: Lung: Right Middle Lo be [place] MethodistCytology (non-gynecological) [id number] 09:30:53 Test Item Value Reference Range Interpretation Comments Case number (test code = [id number]) Cytology See link below for (non-gynecological) PDF Lab Report report (test code = 1178) Result status (test code This is Final Report = [id number]) for [id number] [facility] MethodistAFB [id number] 02:02:29 Test Item Value Reference Range Interpretation Comments AFB stain No acid fast Specimen (test code = bacilli (AFB) InformationSpe cimen 676-7) seen. Source: Bronchi al alveolar lavageSpecimen Site: Lung: Right Middle Lo be [place] MethodistGram [id number] 20:15:43 Test Item Value Reference Range Interpretation Comments Gram stain No WBC's or Specimen isolate (test organisms seen. Information Specimen code = 1469) Source: Bronchi al alveolar lavage Specimen Site: Lung: Rig ht Middle Lobe [place] [facility]artesia [facility] hospitalXR Chest 1 [id number] 17:15:26Hm Interface, Radiology Results 05/07/2019 5:18 PM CDTEXAMINATION: XR CHEST 1 VW PORTABLECLINICAL HISTORY: Sp EBUSCOMPARISON: CT chest 04/26/2019IMPRESSION:Heart and mediastinum: Right greater than left perihilar soft tissue nodularity. Cardiac silhouette is within normal limits.Lungs and pleura: Hazy bibasilar airspace opacifications. Trace fluid within the right minor fissure. No pneumothorax.Bones and soft tissues: No acute abnormality.[facility]- [id number] Dictated and approved by sales and marketing vice president/fellow: Cr Bone, Yaw Michaud MD, personally reviewed the images and r esident's/fellow's findings and agree with the final report.[facility] [id number] 13:28:12 Test Item Value Reference Range Interpretation Comments POC glucose (test code 112 mg/dL 65-99 H Opera tor Name: Walt = 59152-1) TamaraDevice ID : [id number] able: No Action Neede d Lab Interpretation Abnormal (test code = 23471-1) [facility] [id number] 12:45:54Caleb Diallo MD 05/07/2019 12:46 PMAirwayPerformed by: Caleb Diallo MDAuthorized by: Caleb Diallo MD Location: ORUrgency: ElectiveDifficult Airway: No Preoxygenated with 100% O2: Yes C-spine Precautions Maintained Throughout: No Mask Ventilation: Assisted maskFinal Airway Type: Endotracheal airwayFinal Endotracheal Airway: ETTCuffed: Yes Technique Used: Direct laryngoscopyInsertion Site: OralBlade Type: MacintoshLaryngoscope Blade/Videolaryngoscope Blade Size: 3ETT Size (mm) : 8.0Cuff at minimum occlusion pressure: Yes Measured from: GumsETT to Gums (cm): 22Placement Verified by: direct visualization Laryngoscopic view: Grade I - full view of glottisRapid Sequence Induction (RSI): No Modified RSI: Yes Number of Attempts at Approach: 1[facility] MethodistCT Chest External Study 2019-04-29 12:16:40This exam was not acquired at a Shinto facility and has not been interpreted by a Shinto Provider. The exam was imported into our imaging system.[place] MethodistMRI Head External [id number] 20:17:12This exam was not acquired at a Shinto facility and has not been interpreted by a Shinto Provider. The exam was imported into our imaging system.[place] MethodistPET/CT Whole Body External [id number] 20:16:45This exam was not acquired at a Shinto facility and has not been interpreted by a Shinto Provider. The exam was imported into our imaging system.[place] MethodistECG Pre/Post [id number] 19:24:01 Test Item Value Reference Range Interpretation Comments Ventricular rate (test 83 code = 253) Atrial rate (test code = 83 255) [place] interval (test code = 136 266) QRSD interval (test code 92 = 260) QT interval (test code = 354 264) QTC interval (test code 415 = 265) P axis 1 (test code = 53 267) QRS axis 1 (test code = -8 268) T wave axis (test code = 26 270) EKG impression (test Normal sinus code = 273) rhythm-Normal ECG-No previous ECGs available-Electronica lly Signed By Alex Verma MD ([id number]) on 04/25/2019 7:24:00 PM [place] MethodistPartial thromboplastin time, [id number] 16:05:16 Test Item Value Reference Range Interpretation Comments PTT (test code = 28.3 23.0- 36.0 [place] [address]-1) unfractionated heparin is61.0-112.0 se conds which corresponds to Anti-Xa0.3-0.7 U/ml. [place] MethodistProthrombin time with [id number] 16:05:08 Test Item Value Reference Range Interpretation Comments Prothrombin time (test 13.1 11.5- 14.5 sec code = 5902-2) INR (test code = 1.0 The Interna tional 48914-6) Normalized Rati o (INR) is a therapeutic m onitoring tool for patien ts who are stable on oral anticoagulant t herapy. An INR of 2.0-3.0 is suggested for d eep vein thrombosis/pulm onary embolism. Madan MethodistCBC with platelet and [id number] 15:47:13 Test Item Value Reference Range Interpretation Comments WBC (test code = 11654-8) 9.39 4.50- 11.00 k/uL RBC (test code = 13120-2) 4.10 m/uL 4.2-5.5 L HGB (test code = 718-7) 11.9 g/dL 12-16 L HCT (test code = 4544-3) 37.7 % 37-47 MCV (test code = 787-2) 92.0 fL 82-100 MCH (test code = 785-6) 29.0 pg 27-34 MCHC (test code = 786-4) 31.6 g/dL 31-37 RDW - SD (test code = 49.6 fL 37-55 85681-8) MPV (test code = 02071-3) 9.8 fL 8.8-13.2 Platelet count (test code 272 150- 400 k/uL = 70718-1) Nucleated RBC (test code 0.00 /100 WBC = 71123-0) Neutrophils (test code = 79.3 % 39-69 H 68669-4) Lymphocytes (test code = 6.4 % 25-45 L 69081-1) Monocytes (test code = 8.6 % 0-10 78593-5) Eosinophils (test code = 3.3 % 0-5 32816-3) Basophils (test code = 0.7 % 0-1 32298-3) Immature granulocytes 1.7 % 0-1 H "Immat ure (test code = 66083-7) granul ocytes" (promyelocytes, myelocytes, metamyelocytes) Lab Interpretation (test Abnormal code = 05231-6) Madan Moody
[2019-09-28] MEDS ORDERED: METOPROLOL TAR 50 MG TAB ONE (14:07)
[2019-09-28] MEDS ORDERED: ADENOSINE 6 MG/ 2ML VIAL IV ONE ×2 (14:07→14:08)
[2019-09-28] MEDS ORDERED: NA CHLORIDE 0.9% 1,000 ML ONE (14:08)
[2019-09-28] MEDS ORDERED: METOPROLOL TARTRATE 5 MG/5 ML INJ IV ONE (14:08)
--- NOTE | 2019-09-28 14:31 | RAD REPORT ---
EXAM DESCRIPTION: Jorge Single View09/28/2019 2:12 pm CLINICAL HISTORY: Palpitations COMPARISON: August 2019 FINDINGS: A few areas of subsegmental atelectasis are present within the right lung Left lung appears clear of acute infiltrate Heart is borderline enlarged
[2019-09-28 14:40] LABS: ALT/SGPT 75 U/L (12-78); AST/SGOT 48 U/L (15-37); Albumin 3.9 g/dL (3.4-5.0); Alkaline Phosphatase 146 U/L (45-117); BUN Blood Urea Nitrogen 24 mg/dL (7-18); Bicarbonate 24 mmol/L (21-32); Bilirubin Direct 0.2 mg/dL (0-0.2); Bilirubin Total 0.6 mg/dL (0.2-1.0); Glucose Level 273 mg/dL (74-106); NT PRO-BNP 93 pg/mL (<125); Potassium 4.8 mmol/L (3.5-5.1); Sodium Level 140 mmol/L (136-145); Troponin (Emerg Dept Use Only) < 0.02 ng/mL (0.0-0.045)
--- NOTE | 2019-09-28 14:50 | EDPHYS ---
Physician Documentation [facility] Name: Chelsey Green Age: 53 yrs Sex: Female : 1965 Arrival Date: 09/28/2019 Time: 13:40 Bed 2 Private MD: ED Physician Giacomo Agustin HPI: 09/27 14:01 This 53 yrs old Female presents to ER via Wheelchair with complaints of russell Irregular Pulse, Doesn't Feel Right. 14:01 The patient presents with a history of irregular heart beat, heart racing. Context: The russell symptoms occur with light activity. Onset: The symptoms/episode began/occurred just prior to arrival. Duration: The patient or guardian reports a single episode, that is still ongoing. Modifying factors: The symptoms are aggravated by nothing. The symptoms are alleviated by nothing. Associated signs and symptoms: The patient has no apparent associated signs or symptoms. Severity of symptoms: At their worst the symptoms were moderate in the emergency department the symptoms are unchanged. The patient has not experienced similar symptoms in the past. 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 - Social history:: Smoking status: Patient/guardian denies using tobacco, the patient reports quitting approximately 5 years ago. - Family history:: not pertinent. ROS: 14:01 Constitutional: Negative for fever, chills, and weight loss, Eyes: Negative for injury, russell pain, redness, and discharge, ENT: Negative for injury, pain, and discharge, Neck: Negative for injury, pain, and swelling, Respiratory: Negative for shortness of breath, cough, wheezing, and pleuritic chest pain, Abdomen/GI: Negative for abdominal pain, nausea, vomiting, diarrhea, and constipation, Back: Negative for injury and pain, : Negative for injury, bleeding, discharge, and swelling, MS/Extremity: Negative for injury and deformity, Skin: Negative for injury, rash, and discoloration, Neuro: Negative for headache, weakness, numbness, tingling, and seizure, Psych: Negative for depression, anxiety, suicide ideation, homicidal ideation, and hallucinations, Allergy/Immunology: Negative for hives, rash, and allergies, Endocrine: Negative for neck swelling, polydipsia, polyuria, polyphagia, and marked weight changes, Hematologic/Lymphatic: Negative for swollen nodes, abnormal bleeding, and unusual bruising. 14:01 Cardiovascular: Positive for palpitations. Exam: 14:01 Constitutional: This is a well developed, well nourished patient who is awake, alert, russell and in no acute distress. Head/Face: Normocephalic, atraumatic. Eyes: Pupils equal round and reactive to light, extra-ocular motions intact. Lids and lashes normal. Conjunctiva and sclera are non-icteric and not injected. Cornea within normal limits. Periorbital areas with no swelling, redness, or edema. ENT: Nares patent. No nasal discharge, no septal abnormalities noted. Tympanic membranes are normal and external auditory canals are clear. Oropharynx with no redness, swelling, or masses, exudates, or evidence of obstruction, uvula midline. Mucous membranes moist. Neck: Trachea midline, no thyromegaly or masses palpated, and no cervical lymphadenopathy. Supple, full range of motion without nuchal rigidity, or vertebral point tenderness. No Meningismus. Chest/axilla: Normal chest wall appearance and motion. Nontender with no deformity. No lesions are appreciated. Respiratory: Lungs have equal breath sounds bilaterally, clear to auscultation and percussion. No rales, rhonchi or wheezes noted. No increased work of breathing, no retractions or nasal flaring. Abdomen/GI: Soft, non-tender, with normal bowel sounds. No distension or tympany. No guarding or rebound. No evidence of tenderness throughout. Back: No spinal tenderness. No costovertebral tenderness. Full range of motion. Skin: Warm, dry with normal turgor. Normal color with no rashes, no lesions, and no evidence of cellulitis. MS/ Extremity: Pulses equal, no cyanosis. Neurovascular intact. Full, normal range of motion. Neuro: Awake and alert, GCS 15, oriented to person, place, time, and situation. Cranial nerves II-XII grossly intact. Motor strength 5/5 in all extremities. Sensory grossly intact. Cerebellar exam normal. Normal gait. Psych: Awake, alert, with orientation to person, place and time. Behavior, mood, and affect are within normal limits. 14:01 Cardiovascular: Rate: tachycardic, Rhythm: regular, Pulses: Pulses are 4+ in bilateral radial, brachial, femoral, popliteal, posterior tibial and and dorsalis pedis arteries.. Heart sounds: normal, Edema: is not appreciated, JVD: is not appreciated. 14:01 Musculoskeletal/extremity: DVT Exam: No signs of deep vein thrombosis. no pain, no swelling, no tenderness, negative Homans' sign noted on exam, no appreciated bluish discoloration, no erythema, no increased warmth. 14:21 ECG was reviewed by the Attending Physician. [facility] 14:21 ECG was reviewed by the Attending Physician. [facility] Vital Signs: 13:43 BP 113 / 80; Pulse 167; Resp 17 S; Temp 97.8(O); Pulse Ox 96% on R/A; Weight 115.67 kg jd3 (R); Height 5 ft. 8 in. (172.72 cm) (R); Pain 4/10; 14:00 BP 105 / 77; Pulse 173; Resp 14; Pulse Ox 97% ; rb1 14:11 BP 121 / 77; Pulse 93; Resp 17; Pulse Ox 96% on 2 lpm NC; rb1 14:30 BP 106 / 67; Pulse 90; Resp 18; Pulse Ox 97% on 2 lpm NC; rb1 15:26 BP 106 / 60; Pulse 87; Resp 16; Pulse Ox 96% ; rb1 16:00 BP 114 / 65; Pulse 82; Resp 19; Pulse Ox 95% ; rb1 13:43 Body Mass Index 38.77 (115.67 kg, 172.72 cm) jd3 MDM: 13:57 Patient medically screened. pm1 14:03 Differential diagnosis: arrythmia, dehydration. Data reviewed: vital signs, nurses [facility] notes, lab test result(s), EKG, radiologic studies, plain films. Data interpreted: monitoring analyst: rate is 167 beats/min, rhythm is regular, Pulse oximetry: on room air is 96 %. Test interpretation: by ED physician or midlevel provider: ECG, plain radiologic studies. Counseling: I had a detailed discussion with the patient and/or guardian regarding: the historical points, exam findings, and any diagnostic results supporting the discharge/admit diagnosis, lab results, radiology results, the need for outpatient follow up, for definitive care, a marketing development specialist. Response to treatment: the patient's symptoms have markedly improved after treatment. 14:24 ED course: improved. converted with adenosine 6mg rivp. [facility] 14:46 ED course: kidney failure and atelectasis addressed and explained importance of follow russell up, cardiology and nephrology. 15:43 Special discussion: Based on the patient's history, exam, and Dx evaluation, there is [facility] no indication for emergent intervention or inpatient Tx. It is understood by the patient/guardian that if the Sx's persist or worsen they need to return immediately for re-evaluation. Based on the history and exam findings, there is no indication for further emergent testing or inpatient evaluation. I discussed with the patient/guardian the need to see the marketing development specialist for further evaluation of the symptoms. 09/27 14:01 Order name: Basic Metabolic Panel; Complete Time: 14:44 [facility] 09/27 14:01 Order name: CBC with Diff; Complete Time: 15:42 [facility] 09/27 14:01 Order name: LFT's; Complete Time: 14:44 [facility] 09/27 14:01 Order name: Magnesium; Complete Time: 14:44 [facility] 09/27 14:01 Order name: NT PRO-BNP; Complete Time: 14:44 [facility] 09/27 14:01 Order name: Troponin (emerg Dept Use Only); Complete Time: 14:44 [facility] 09/27 14:01 Order name: XRAY Chest (1 view); Complete Time: 14:44 [facility] 09/27 14:01 Order name: TSH; Complete Time: 14:44 [facility] 09/27 14:45 Order name: INCENTIVE SPIROMETRY [facility] 09/27 15:08 Order name: Urine Dipstick--Ancillary (enter results); Complete Time: 15:42 aa5 09/27 14:01 Order name: EKG; Complete Time: 14:01 [facility] 09/27 14:01 Order name: Cardiac monitoring; Complete Time: 14:22 [facility] 09/27 14:01 Order name: EKG - Nurse/Tech; Complete Time: 14:22 [facility] 09/27 14:01 Order name: IV Saline Lock; Complete Time: 14:22 [facility] 09/27 14:01 Order name: Labs collected and sent; Complete Time: 14: [facility] 09/27 14:01 Order name: O2 Per Protocol; Complete Time: 14: [facility] 09/27 14:01 Order name: O2 Sat Monitoring; Complete Time: : [facility] 09/27 14:01 Order name: Oxygen; Complete Time: [facility] 09/27 14:18 Order name: EKG; Complete Time: 14: [facility] 09/27 14:18 Order name: EKG - Nurse/Tech; Complete Time: 14: [facility] 09/27 15:08 Order name: Urine Dipstick-Ancillary (obtain specimen); Complete Time: 15:08 aa5 EC: Rate is 167 beats/min. Rhythm is regular. QRS [place] is Normal. [place] interval is normal. russell QRS interval is normal. QT interval is normal. No Q waves. T waves are Normal. No ST changes noted. Clinical impression: SVT. Interpreted by me. Reviewed by me. 14: Rate is 88 beats/min. Rhythm is regular. QRS [place] is Normal. [place] interval is normal. QRS russell interval is normal. QT interval is normal. No Q waves. T waves are Normal. No ST changes noted. Clinical impression: NSR w/ Non-specific ST/T Changes and No evidence of ischemia. Interpreted by me. Reviewed by me. Administered Medications: 14:01 Drug: Lopressor (metoprolol TARTRATE) 50 mg Route: PO; aa5 14:30 Follow up: Response: No adverse reaction; Heart rate decreased rb1 14:01 Drug: Lopressor 5 mg Route: IVP; Site: right forearm; aa5 14:15 Follow up: Response: No adverse reaction; heart rate decreased rb1 14:06 Drug: NS 0.9% 1000 ml Route: IV; Rate: 1 bolus; Site: left forearm; rb1 15:00 Follow up: IV Status: Completed infusion rb1 14:07 Drug: Adenocard 6 mg Route: IVP; Site: right forearm; aa5 14:15 Follow up: Response: No adverse reaction; Other; HR decreased to 93 \T\ 1411 rb1 Disposition: 09/28/19 14:49 Discharged to Home. Impression: Supraventricular tachycardia, Atelectasis, Obesity, unspecified, Unspecified kidney failure - chronic, Type 2 diabetes mellitus. - Condition is Stable. - Discharge Instructions: Atelectasis, Adult, Obesity, Adult, Paroxysmal Supraventricular Tachycardia, Paroxysmal Supraventricular Tachycardia, [id number], Aspirin and Your Heart, Obesity, Adult, [id number]. - Prescriptions for Toprol XL 50 mg Oral Tablet - take 1 tablet by ORAL route once daily; 20 tablet. - Medication Reconciliation Form, Thank You Letter, Antibiotic Education, Prescription Opioid Use form. - Follow up: Private Physician; When: 2 - 3 days; Reason: Recheck today's complaints, Continuance of care, Re-evaluation by your physician. Follow up: Donny Guevara; When: 2 - 3 days; Reason: Recheck today's complaints, Re-evaluation by your physician. Follow up: Ru Worthy MD; When: 2 - 3 days; Reason: Recheck today's complaints, Re-evaluation by your physician. - Problem is new. - Symptoms have improved. Signatures: Dispatcher [employer] EDMS Giacomo Agustin MD MD cha Calderon, Audri, RN RN aa5 Jessika Campos RN RN rb1 Rudy Washington NP STATIONARY BOILER FIREMAN pm1 Miguel Oscar RN RN jd3 Corrections: (The following items were deleted from the chart) 14:52 14:49 09/28/2019 14:49 Discharged to Home. Impression: Supraventricular tachycardia; russell Atelectasis; Obesity, unspecified; Unspecified kidney failure - chronic. Condition is Stable. Discharge Instructions: Paroxysmal Supraventricular Tachycardia, Paroxysmal Supraventricular Tachycardia, [id number], Aspirin and Your Heart, Atelectasis, Adult, Obesity, Adult, Obesity, Adult, [id number]. Prescriptions for Toprol XL 50 mg Oral Tablet - take 1 tablet by ORAL route once daily; 20 tablet. and Forms are Medication Reconciliation Form, Thank You Letter, Antibiotic Education, Prescription Opioid Use. Follow up: Private Physician; When: 2 - 3 days; Reason: Recheck today's complaints, Continuance of care, Re-evaluation by your physician. Follow up: Donny Guevara; When: 2 - 3 days; Reason: Recheck today's complaints, Re-evaluation by your physician. Follow up: Ru Worthy; When: 2 - 3 days; Reason: Recheck today's complaints, Re-evaluation by your physician. Problem is new. Symptoms have improved. russell 16:25 14:52 09/28/2019 14:49 Discharged to Home. Impression: Supraventricular tachycardia; aa5 Atelectasis; Obesity, unspecified; Unspecified kidney failure - chronic; Type 2 diabetes mellitus. Condition is Stable. Discharge Instructions: Paroxysmal Supraventricular Tachycardia, Paroxysmal Supraventricular Tachycardia, [id number], Aspirin and Your Heart, Atelectasis, Adult, Obesity, Adult, Obesity, Adult, [id number]. Prescriptions for Toprol XL 50 mg Oral Tablet - take 1 tablet by ORAL route once daily; 20 tablet. and Forms are Medication Reconciliation Form, Thank You Letter, Antibiotic Education, Prescription Opioid Use. Follow up: Private Physician; When: 2 - 3 days; Reason: Recheck today's complaints, Continuance of care, Re-evaluation by your physician. Follow up: Donny Guevara; When: 2 - 3 days; Reason: Recheck today's complaints, Re-evaluation by your physician. Follow up: Ru Worthy; When: 2 - 3 days; Reason: Recheck today's complaints, Re-evaluation by your physician. Problem is new. Symptoms have improved. russell
--- NOTE | 2019-09-28 14:50 | ER ---
Nurse's Notes [facility] Name: Chelsey Green Age: 53 yrs Sex: Female : 1965 Arrival Date: 09/28/2019 Time: 13:40 Bed 2 Private MD: Diagnosis: Supraventricular tachycardia;Atelectasis;Obesity, unspecified;Unspecified kidney failure-chronic;Type 2 diabetes mellitus Presentation: 09/27 13:41 Chief complaint: Patient states: "My pulse has been high for a little over an hour, jd3 like up in the 150s.". Coronavirus screen: At this time, the client does not indicate any symptoms associated with coronavirus-19. Ebola Screen: Patient negative for fever greater than or equal to 101.5 degrees Fahrenheit, and additional compatible Ebola Virus Disease symptoms. Initial Sepsis Screen: Does the patient meet any 2 criteria? No. Patient's initial sepsis screen is negative. Does the patient have a suspected source of infection? No. Patient's initial sepsis screen is negative. Risk Assessment: Do you want to hurt yourself or someone else? Patient reports no desire to harm self or others. Onset of symptoms was September 28, 2019. 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 - Social history:: Smoking status: Patient/guardian denies using tobacco, the patient reports quitting approximately 5 years ago. - Family history:: not pertinent. Screenin:57 Abuse screen: Denies threats or abuse. Nutritional screening: No deficits noted. rb1 Tuberculosis screening: No symptoms or risk factors identified. Fall Risk None identified. Assessment: 13:55 Reassessment: Pt states she needs to void now. Pt assisted with bedside commode, pt aa5 became short of breath while using the bedside commode and was placed in bed. . 13:57 General: Appears distressed, Behavior is anxious. Pain: Complains of pain in rb1 mid-sternal area Pain radiates to back and bilateral shoulders Pain currently is 4 out of 10 on a pain scale. Pain began 1 hour ago. Neuro: Level of Consciousness is awake, alert, obeys commands, Oriented to person, place, time, situation. Cardiovascular: Reports shortness of breath, Increased heart rate for about an hour before arriving to the hospital. Respiratory: Airway is patent Respiratory effort is labored, Respiratory pattern is regular, symmetrical. GI: No signs and/or symptoms were reported involving the gastrointestinal system. : No signs and/or symptoms were reported regarding the genitourinary system. Derm: Skin is pink, warm \\T\\ dry. 14:06 Reassessment: Pt's HR decreased to 156 bpm after Lopressor IV, Dr. Agustin notified. . aa5 14:07 Reassessment: Adenosine given, Dr. Agustin at bedside. Post-adenosine cardiac rhythm aa5 is NSR at 92bpm, pt's SOB has improved, appears comfortable. . 14:25 Reassessment: Patient appears in no apparent distress at this time. Patient states rb1 feeling better. 15:25 Reassessment: Patient appears in no apparent distress at this time. Patient and/or rb1 family updated on plan of care and expected duration. Pain level reassessed. Patient is alert, oriented x 3, equal unlabored respirations, skin warm/dry/pink. Discharge pending due to waiting on lab results. Vital Signs: 13:43 BP 113 / 80; Pulse 167; Resp 17 S; Temp 97.8(O); Pulse Ox 96% on R/A; Weight 115.67 kg jd3 (R); Height 5 ft. 8 in. (172.72 cm) (R); Pain 4/10; 14:00 BP 105 / 77; Pulse 173; Resp 14; Pulse Ox 97% ; rb1 14:11 BP 121 / 77; Pulse 93; Resp 17; Pulse Ox 96% on 2 lpm NC; rb1 14:30 BP 106 / 67; Pulse 90; Resp 18; Pulse Ox 97% on 2 lpm NC; rb1 15:26 BP 106 / 60; Pulse 87; Resp 16; Pulse Ox 96% ; rb1 16:00 BP 114 / 65; Pulse 82; Resp 19; Pulse Ox 95% ; rb1 13:43 Body Mass Index 38.77 (115.67 kg, 172.72 cm) jd3 ED Course: 13:40 Patient arrived in ED. ag5 13:43 Triage completed. jd3 13:45 Arm band placed on. jd3 13:56 Jessika Campos, NORMA is Primary Nurse. rb1 13:57 Rudy Washington, MALIK is PHCP. pm1 13:57 Giacomo Agustin MD is Attending Physician. pm1 13:57 Patient has correct armband on for positive identification. Bed in low position. Call rb1 light in reach. Side rails up X 1. site monitor on. Pulse ox on. NIBP on. Warm blanket given. 13:57 Missed attempt(s): 20 gauge in right forearm. Bleeding controlled, band aid applied, aa5 catheter tip intact. 13:57 Oxygen administration via nasal cannula \\T\\ 2L/min. rb1 14:00 Initial lab(s) drawn, by al, sent to lab. Inserted saline lock: 18 gauge in right aa5 forearm, using aseptic technique. Blood collected. 14:12 XRAY Chest (1 view) In Process Unspecified. EDMS 14:48 Donny Guevara MD is Referral Physician. russell 14:49 Ru Worthy MD is Referral Physician. russell 16:25 No provider procedures requiring assistance completed. IV discontinued, intact, rb1 bleeding controlled, No redness/swelling at site. Pressure dressing applied. Administered Medications: 14:01 Drug: Lopressor (metoprolol TARTRATE) 50 mg Route: PO; aa5 14:30 Follow up: Response: No adverse reaction; Heart rate decreased rb1 14:01 Drug: Lopressor 5 mg Route: IVP; Site: right forearm; aa5 14:15 Follow up: Response: No adverse reaction; heart rate decreased rb1 14:06 Drug: NS 0.9% 1000 ml Route: IV; Rate: 1 bolus; Site: left forearm; rb1 15:00 Follow up: IV Status: Completed infusion rb1 14:07 Drug: Adenocard 6 mg Route: IVP; Site: right forearm; aa5 14:15 Follow up: Response: No adverse reaction; Other; HR decreased to 93 \\T\\ 1411 rb1 Intake: Outcome: 14:49 Discharge ordered by . russell 16:25 Patient left the ED. aa5 16:25 Discharged to home ambulatory. rb1 16:25 Condition: stable 16:25 Discharge instructions given to patient, Instructed on discharge instructions, follow up and referral plans. medication usage, Demonstrated understanding of instructions, follow-up care, medications, Prescriptions given X 1. Signatures: Dispatcher [employer] Giacomo Antunez MD MD cha Calderon, Audri, RN RN aa5 Jessika Campos RN RN rb1 Rudy Washington, MALIK HORIZONTAL DRILL OPERATOR pm1 Miguel Oscar RN RN jd3 Tyrel Mendez 5
[2019-09-28 15:13] LABS: Urine Blood NEGATIVE (NEG); Urine Glucose 1+ (NEG); Urine Protein NEGATIVE (NEG); Urine Specific Gravity 1.015 (1.005-1.030)
[2019-09-28 15:23] LABS: Hematocrit 33.2 % (36.0-45.0); RBC Red Blood Cell Count 3.64 M/uL (3.86-4.86)
[2019-09-28 15:24] LABS: Absolute Lymphocytes (CBC) 0.5 K/uL (0.7-4.9); Basophils % 0.7 % (0-1.3); Lymphocytes % 8.8 % (15.3-44.8); MPV 8.3 fL (7.6-11.3)
== END 2019-09-28 16:25 | disposition home or self-care (01) ==
LOC: ER 13:38
DX: I47.1 Supraventricular tachycardia (principal); J98.11 Atelectasis; E66.9 Obesity, unspecified; N17.9 Acute kidney failure, unspecified; E11.9 Type 2 diabetes mellitus without complications
CPT/HCPCS: 96361; 93005 ×2; 85025; 80048; 36415; 83735; 80076; 84443; 81003; 84484; 83880; 71045; 96375; 96374; 99285; J0153; J7030